=== PATIENT | female | born 1955 | race Caucasian/White ===

== ENCOUNTER 2024-02-24 07:27 | Inpatient (IN) | payer MEDICARE, SELFPAY ==
[2024-02-17 18:09] VITALS: BP 164/94; BMI 23.0
[2024-02-17 19:40] VITALS: BP 167/97
[2024-02-17] MEDS: DILAUDID 1 MG IV ×2 (19:48→20:53)
[2024-02-17 20:01] LABS: % Basophils 0.3 % (0-2); % Eosinophils 1.8 % (0-6); % Immature Granulocytes 0.3 % (0-0.5); % Lymphocytes 10.1 % (20.5-51.1); % Monocytes 13.5 % (1.7-9.3); Absolute Eosinophils 0.1 10^3/uL (0-0.7); Absolute Lymphocytes 0.3 10^3/uL (1.2-3.4); Absolute Monocytes 0.4 10^3/uL (0.1-0.6); Absolute Neutrophils 2.4 10^3/uL (1.4-6.5); Hematocrit 29.5 % (37.0-47.0); Hemoglobin 10.1 g/dL (12.0-16.0); Mean Corp Hgb Conc. 34.2 g/dL (33.0-37.0); Mean Corpuscular Hgb 32.7 pg (27.0-31.0); Mean Corpuscular Volume 95.5 fL (81.0-99.0); Mean Platelet Volume 12.3 fL (7.4-10.4); Nucleated Red Blood Cells % 0 %; Platelet Count 83 10^3/uL (130-400); Red Blood Cell Count 3.09 10^6/uL (4.20-5.40); Red Cell Dist. Width 15.2 % (11.5-14.5); White Blood Cell Count 3.3 10^3/uL (4.8-10.8)
--- NOTE | 2024-02-17 20:15 | ED.GENMED ---
History of Present Illness
<Nettie Velásquez PA-C - Last Filed: 02/18/24 03:37>
General
Chief Complaint: Back Pain
Source: patient and family
Exam Limitations: none
Time Seen by Provider: 02/17/24 19:12
Travel History
Have you had any contact with someone who has COVID-19?: No
Do you have any symptoms of coronavirus? Fever > 100 degrees, chills, cough, shortness of breath, sore throat, loss of taste or smell, muscle aches, or headache?: No
History of Present Illness
History of Present Illness:
69y/o F with h/o mult myeloma, frequent UTI, htn, hld
subacute compress fx of t8-t9 on chronic pain management
due for kyphoplasty next week
here for acute exac of chronic mid to low back pain unchanged frmo baseline but also with associated generalized fatigue and nauea
pt had a fall 6 weeks ago and went to [facility] [place], was diagnosed with compression fx
was sent to skilled rehab for 2 weeks [place]
then from there 1 week ago went to [facility]
she believes she has not been given meds properly as written: dilaudid 4 mg q6, oxy 10 mg q6 prn
pt says she doubts she has had that many doses and her pain is not controlled
her sister was with her today and saw her really uncomortable and pt seemed more weak and gneerally not well than usual
she has not had any new falls, no focal weakness, no incontinence, no fever, chils nausea, vomiting.
Past History
<Nettie Velásquez PA-C - Last Filed: 02/18/24 03:37>
Past History
ED Past Medical History: HTN, Hypercholesterolemia and Other (multiple myeloma 2012 stem cell txp 2016)
Review of Systems
<Nettie Velásquez PA-C - Last Filed: 02/18/24 03:37>
Review of Systems
Allergies reviewed?: Yes
All Other Systems: Not applicable
Phy Exam
<Nettie Velásquez PA-C - Last Filed: 02/18/24 03:37>
Physical Exam
Physical Exam:
GENERAL: Alert , in no apparent distress, comfortable at rest
HEAD: NCAT
NECK: no midline tenderness, active ROM intac
CARDIAC: Regular rate and rhythm, no edema
LUNGS: Clear breath sounds bilaterally, no acute respiratory distress, no wheezes/rales/rhonchi
ABDOMEN: Soft, without focal tenderness, no r/g, no cvat, normal bowel sounds, nondistended
NEUROLOGICAL: Alert and oriented, no focal neuro deficits, CN intact, 5/5 strength, sensation intact, unable to get her up to mabultate
SKIN: Warm and dry,
MUSCULOSKELETAL: No edema, well perfused.
Back: No midline tenderness, mod kyphosis; no bruising
no weakness in the legs
pain with moement of her back, takes a long time to move in the stretcher
PSYCH: Normal and appropriate interaction.
Course
<Nettie Velásquez PA-C - Last Filed: 02/18/24 03:37>
Orders/Labs/Results
Orders:
Orders
02/17/24 19:30
HYDROmorphone [Dilaudid] 1 mg IV NOW STA
CR Thoracic Spine 3 Views Urgent
Reason For Exam: mid to low thoracic pain, h/o compression fx
Lumbar Spine Complete, 4 View [CR Lumbar Spine Comp Min 4 Vw*] Urgent
Comment:
Reason For Exam: low back pain, h/o comptression fx
02/17/24 19:48
Complete Blood Count/With Diff Urgent
Comprehensive Metabolic Panel Urgent
Lipase Urgent
02/17/24 20:50
HYDROmorphone [Dilaudid] 1 mg IV NOW STA
02/17/24 21:46
Urinalysis Reflex To Culture Urgent
Date Specimen was Collected: 02/17/24
Time Specimen was Collected: 21:44
Urine Microscopic Reflex Cult Urgent
Urine Culture Urgent
CAROL Source: U
Specimen Description:
Date Specimen was Collected: 02/17/24
Time Specimen was Collected: 21:44
02/17/24 23:13
Admit/Transfer Patient As Directed
Co-Sign Provider:
Level of Care: Observation services
Assign to:: Medical/Surgical
Physician / Group: Mary
Diagnosis: Uncontrolled Pain
02/17/24 23:16
Code Status As Directed
Resuscitation Status: Do not resuscitate
Reached after discussion with pt or family/Healthcare POA: Yes
02/17/24 23:18
DNR Bracelet Application ONCE
02/17/24 23:31
HYDROmorphone [Dilaudid] 0.5 mg IV NOW STA
Oxycodone Controlled Release [Oxycontin (Controlled Release)] 10 mg PO NOW STA
02/18/24 00:37
Acetaminophen [Tylenol] 650 mg PO Q4HPRN PRN
HYDROmorphone [Dilaudid] 0.5 mg IV Q3HPRN PRN
Oxycodone [Roxicodone] 10 mg PO Q6H PRN
02/18/24 00:37
Activity As Directed
Activity Level: Out of Bed-Early Mobility
With Assistance
I&O [Intake/ Output] As Directed
Frequency: q12h
Pneumatic Compression Sleeves As Directed
Type: Knee high
Vital Signs As Directed
Frequency: Per unit guidelines
Weight As Directed
Frequency: Daily
Ot Eval And Treat Routine
Pt Eval And Treat Routine
Activity Level: Out of Bed-Early Mobility
With Assistance
DX Deep Vein Thrombosis Video Routine
02/18/24 Breakfast
Regular
At Your Request: Full Participation
Basic Metabolic Panel IN AM
Complete Blood Count/No Diff IN AM
02/18/24 08:00
Acyclovir [Zovirax] 400 mg PO DAILY
Duloxetine Delayed Release [Cymbalta Delayed Release] 30 mg PO DAILY
Lisinopril [Zestril] 40 mg PO DAILY
Polyethylene Glycol Powder [Miralax] 17 grams PO DAILY
Pyridoxine [Vitamin B-6] 100 mg PO DAILY
02/18/24 22:00
Atorvastatin [Lipitor] 10 mg PO HS
Abnormal Lab Results
02/17/24 02/17/24
19:48 21:46
WBC 3.3 L 10^3/uL
(4.8-10.8)
RBC 3.09 L 10^6/uL
(4.20-5.40)
Hgb 10.1 L g/dL
(12.0-16.0)
Hct 29.5 L %
(37.0-47.0)
MCH 32.7 H pg
(27.0-31.0)
RDW 15.2 H %
(11.5-14.5)
Plt Count 83 L 10^3/uL
(130-400)
MPV 12.3 H fL
(7.4-10.4)
Absolute Lymphs (auto) 0.3 L 10^3/uL
(1.2-3.4)
Lymphocytes % 10.1 L %
(20.5-51.1)
Monocytes % 13.5 H %
(1.7-9.3)
Calcium 11.1 H mg/dl
(8.4-10.2)
Alkaline Phosphatase 131 H U/L
(38-126)
Urine Ketones Trace A
(Negative)
Leukocyte Esterase Rfl Trace A
(Negative)
Urine Bacteria (Reflex) Moderate A
(Negative)
02/17/24 19:48
02/17/24 19:48
Vital Signs
Initial and Last Documented VS:
Initial Vital Signs
Temp Pulse Resp BP Pulse Ox
98.5 F 87 16 164/94 95
02/17/24 18:09 02/17/24 18:09 02/17/24 18:09 02/17/24 18:09 02/17/24 18:09
Last Documented Vital Signs
Temp Pulse Resp BP Pulse Ox
97.5 F 82 16 143/64 97
02/18/24 00:35 02/18/24 01:14 02/18/24 01:14 02/18/24 02:36 02/18/24 00:35
<Petra Pedraza MD - Last Filed: 02/17/24 22:00>
Orders/Labs/Results
Orders:
Orders
02/17/24 19:30
HYDROmorphone [Dilaudid] 1 mg IV NOW STA
CR Thoracic Spine 3 Views Urgent
Reason For Exam: mid to low thoracic pain, h/o compression fx
Lumbar Spine Complete, 4 View [CR Lumbar Spine Comp Min 4 Vw*] Urgent
Comment:
Reason For Exam: low back pain, h/o comptression fx
02/17/24 19:48
Complete Blood Count/With Diff Urgent
Comprehensive Metabolic Panel Urgent
Lipase Urgent
02/17/24 20:50
HYDROmorphone [Dilaudid] 1 mg IV NOW STA
02/17/24 21:46
Urinalysis Reflex To Culture Urgent
Date Specimen was Collected: 02/17/24
Time Specimen was Collected: 21:44
Urine Microscopic Reflex Cult Urgent
Urine Culture Urgent
CAROL Source: U
Specimen Description:
Date Specimen was Collected: 02/17/24
Time Specimen was Collected: 21:44
02/17/24 23:13
Admit/Transfer Patient As Directed
Co-Sign Provider:
Level of Care: Observation services
Assign to:: Medical/Surgical
Physician / Group: Mary
Diagnosis: Uncontrolled Pain
02/17/24 23:16
Code Status As Directed
Resuscitation Status: Do not resuscitate
Reached after discussion with pt or family/Healthcare POA: Yes
02/17/24 23:18
DNR Bracelet Application ONCE
02/17/24 23:31
HYDROmorphone [Dilaudid] 0.5 mg IV NOW STA
Oxycodone Controlled Release [Oxycontin (Controlled Release)] 10 mg PO NOW STA
02/18/24 00:37
Acetaminophen [Tylenol] 650 mg PO Q4HPRN PRN
HYDROmorphone [Dilaudid] 0.5 mg IV Q3HPRN PRN
Oxycodone [Roxicodone] 10 mg PO Q6H PRN
02/18/24 00:37
Activity As Directed
Activity Level: Out of Bed-Early Mobility
With Assistance
I&O [Intake/ Output] As Directed
Frequency: q12h
Pneumatic Compression Sleeves As Directed
Type: Knee high
Vital Signs As Directed
Frequency: Per unit guidelines
Weight As Directed
Frequency: Daily
Ot Eval And Treat Routine
Pt Eval And Treat Routine
Activity Level: Out of Bed-Early Mobility
With Assistance
DX Deep Vein Thrombosis Video Routine
02/18/24 Breakfast
Regular
At Your Request: Full Participation
Basic Metabolic Panel IN AM
Complete Blood Count/No Diff IN AM
02/18/24 08:00
Acyclovir [Zovirax] 400 mg PO DAILY
Duloxetine Delayed Release [Cymbalta Delayed Release] 30 mg PO DAILY
Lisinopril [Zestril] 40 mg PO DAILY
Polyethylene Glycol Powder [Miralax] 17 grams PO DAILY
Pyridoxine [Vitamin B-6] 100 mg PO DAILY
02/18/24 22:00
Atorvastatin [Lipitor] 10 mg PO HS
Abnormal Lab Results
02/17/24 02/17/24
19:48 21:46
WBC 3.3 L 10^3/uL
(4.8-10.8)
RBC 3.09 L 10^6/uL
(4.20-5.40)
Hgb 10.1 L g/dL
(12.0-16.0)
Hct 29.5 L %
(37.0-47.0)
MCH 32.7 H pg
(27.0-31.0)
RDW 15.2 H %
(11.5-14.5)
Plt Count 83 L 10^3/uL
(130-400)
MPV 12.3 H fL
(7.4-10.4)
Absolute Lymphs (auto) 0.3 L 10^3/uL
(1.2-3.4)
Lymphocytes % 10.1 L %
(20.5-51.1)
Monocytes % 13.5 H %
(1.7-9.3)
Calcium 11.1 H mg/dl
(8.4-10.2)
Alkaline Phosphatase 131 H U/L
(38-126)
Urine Ketones Trace A
(Negative)
Leukocyte Esterase Rfl Trace A
(Negative)
Urine Bacteria (Reflex) Moderate A
(Negative)
02/17/24 19:48
02/17/24 19:48
Vital Signs
Initial and Last Documented VS:
Initial Vital Signs
Temp Pulse Resp BP Pulse Ox
98.5 F 87 16 164/94 95
02/17/24 18:09 02/17/24 18:09 02/17/24 18:09 02/17/24 18:09 02/17/24 18:09
Last Documented Vital Signs
Temp Pulse Resp BP Pulse Ox
97.5 F 82 16 143/64 97
02/18/24 00:35 02/18/24 01:14 02/18/24 01:14 02/18/24 02:36 02/18/24 00:35
<Nettie Velásquez PA-C - Last Filed: 02/18/24 03:37>
MDM/Problems Addressed
Differential Diagnosis Includes:
chronic pain, compression fx, deconditioning,
MDM/Problems Addressed:
69 y/o F with mult myeloma, chronic bakc pain on opiates
from [facility]
had fall 6 weeks ago and had xrays at [facility] [place], comp fx of t9/t10 and t11-12 and L2 noted on her paperwork, she was unsure what levels were new?
but she has had ongoing pain, went to rehab after [facility] then [facility]; sounds as if gil isn't dosing her meds as she was getting them before, dilaudid 4 mg q6, oxy 10 q6; becuase they are written as needed; she looks comfortable at rest
but really has hard time moving; i think she just needs pain control and pt/ot; i gave her 2 doses dilaudid
xrays today indep reviewed showing 'new' compression fx at L2, t11
but these are documente don her paperwork
probably subacute
offered d/c back to [facility] if pt felt she was pain controlled but she felt too unomfortable with any movement; pt admitted for pain control -
<Nettie Velásquez PA-C - Last Filed: 02/18/24 03:37>
*Critical Care Note
Total Time (30-74mins, 75-104mins- exclusive of procedures): Not Applicable
ED Attending Note
<Nettie Velásquez PA-C - Last Filed: 02/18/24 03:37>
-
Portions of this chart may have been created with voice recognition software.� Occasional wrong word or��sound alike� substitutions may have occurred due to the inherent limitations of voice recognition software.
<Petra Pedraza MD - Last Filed: 02/17/24 22:00>
ED Attending Note
Patient seen and examined by attending physician: Yes
I performed the substantive portion of visit, reviewed & personally made and approve the management plan that is documented in note by myself or ALIRIO.: Yes
ED Attending Note:
Patient presents with acute on chronic low back pain. She denies any radiation of pain. Patient has good strength and sensation in bilateral lower extremities without saddle anesthesia. After getting 2 rounds of IV pain medication, patient is
still having intractable low back pain with possible acute thoracic and lumbar compression fractures
Discharge Plan
Departure
Patient Disposition: Admit
Date of Disposition: 02/17/24
Time of Disposition: 22:35
Admit to: Med/Surg
Presentation/result/management discussed w/ accepting MD/DO: Hospitalist
Patient with high blood pressure during this ER visit?: No
Condition: Fair
Covid-19: Not Applicable
Discharge Problem:
Compression fracture, Chronic back pain
Interventions
Interventions:
*Risk Screen - Suicide Last Done: 02/17/24 18:12
*General Assessment Last Done: 02/17/24 18:12
*Neglect/Abuse Screening Last Done: 02/17/24 18:12
ED- Fall Risk Assessment Last Done: 02/17/24 19:13
*Nursing Disposition Last Done: 02/18/24 00:17
ED-Musculoskeletal Assessment Last Done: 02/17/24 19:13
Discharge Date and Time
Discharge Date/Time: 02/18/24 00:17
[2024-02-17 20:22] LABS: ALT (SGPT) 18 U/L (0-35); AST (SGOT) 36 U/L (14-36); Alkaline Phosphatase 131 U/L (38-126); Blood Urea Nitrogen 15 mg/dl (7-17); Calcium 11.1 mg/dl (8.4-10.2); Carbon Dioxide 27 mmol/L (22-30); Chloride 102 mmol/L (98-107); Estimated Creatinine Clearance 61 ml/min; Glucose 86 mg/dl (70-99); Potassium 4.1 mmol/L (3.5-5.1); Sodium 135 mmol/L (135-145); Total Bilirubin 0.7 mg/dl (0.2-1.3); Total Protein 6.9 g/dl (6.3-8.2); eGFR > 60.00
[2024-02-17 20:23] LABS: Lipase 52 U/L (23-300)
[2024-02-17 20:24] VITALS: BP 158/76
[2024-02-17 20:50] VITALS: BP 185/91
[2024-02-17 21:53] LABS: Urine Albumin Trace (Neg - Trace); Urine Bilirubin Negative (Negative); Urine Character Clear (Clear); Urine Color Yellow; Urine Glucose Negative (Negative); Urine Ketone Trace (Negative); Urine Leukocyte Trace (Negative); Urine Nitrite Negative (Negative); Urine Occult Blood Negative (Negative); Urine Specific Gravity 1.025 (<1.030); Urine Urobilinogen Negative (Neg - 1+)
[2024-02-17 22:03] LABS: Urine Squamous Cell 16-20 /LPF (Few)
[2024-02-17 22:04] LABS: Urine Red Blood Cell 0-2 /HPF (0-2)
[2024-02-17 22:05] LABS: Urine Bacteria Moderate (Negative)
[2024-02-17 22:25] VITALS: BP 160/90
--- NOTE | 2024-02-17 23:24 | HPS.HSE ---
Family Physician
-
Family Physician: Roz Valdes MD
Chief Complaint
-
Uncontrolled Back Pain
History of Present Illness
Patient is a 69 y/o female with a past medical history of multiple myeloma (status post stem cell transplant), hypertension, hyperlipidemia, and compression fractures of T10, T12, L2, and L3 who presents for acute on chronic low back pain. She has a
history of chronic pain due to multiple myeloma and compression fractures. She sustained a fall 6 weeks ago which resulted in new compression fractures. She recently moved to a new facility and she notes her current pain regimen includes
medications ordered 'as needed' and she has had difficulty receiving those doses while staying at the facility. She admits to using patches in the past for pain but denies relief from these types of medications. She reports that she is scheduled for
a kyphoplasty on Wednesday.
Medical History
Past Medical History
Past Medical History: Reports Other
Additional Past Medical History:
Multiple Myeloma
Compression Fractures
Chronic Pain with Opioid Dependence
Essential Hypertension
Hyperlipidemia
Past Surgical History: Reports Other
Additional Past Surgical History:
Rhinoplasty
Bladder Lift
Social History
Tobacco: Former Smoker (Quit at the age of 28)
Family History
Family History: Not pertinent
Allergies / Home Medications
Allergies reflects when Allergies were last updated in [employer].
Home Medications with original date entered in [employer]
Allergy/Medication List:
Allergies
Allergy/AdvReac Type Severity Reaction Status Date / Time
No Known Allergies Allergy Verified 02/17/24 18:13
Home Medications
atorvastatin 10 mg tablet 10 mg PO HS 09/25/23
lisinopril 40 mg tablet 40 mg PO DAILY 09/25/23
acyclovir 400 mg tablet 400 mg PO DAILY 02/17/24
duloxetine 30 mg capsule,delayed release 30 mg PO DAILY 02/17/24
folic acid 1 mg tablet 1 mg PO DAILY 02/17/24
hydromorphone 4 mg tablet (Dilaudid) 4 mg PO Q6H PRN severe pain 02/17/24
naloxone 4 mg/actuation nasal spray 4 mg intranasal Q3M PRN opiod overdose 02/17/24
oxycodone 10 mg tablet 10 mg PO Q6H 02/17/24
oxycodone 10 mg tablet 10 mg PO Q6H PRN moderate pain 02/17/24
pyridoxine (vitamin B6) 100 mg tablet 100 mg PO DAILY 02/17/24
Review of Systems
-
A 12 point ROS was completed and negative except as noted: Yes
Constitutional: Denies Fever or Chills
Respiratory: Denies Cough or Trouble Breathing
Cardiac: Denies Chest Pain or Palpitations
Abdomen/GI: Reports Constipated; Denies Abdominal Pain
Musculoskeletal: Reports See HPI
Physical Exam
Vital Signs
Vital Signs
Temp Pulse Resp BP Pulse Ox
98.5 F 82 18 160/90 94
02/17/24 18:09 02/17/24 22:25 02/17/24 22:25 02/17/24 22:25 02/17/24 22:25
Physical Exam
General: Comfortable and Conversant
HEENT: Anicteric and Moist mucous membranes
Respiratory: Clear and Non Labored Respirations
Cardiac: S1/S2 and Regular Rhythm
GI: Soft and Non Tender
Rectal: Deferred by Provider
Musculoskeletal: No Clubbing, No Cyanosis and No Edema
Skin: Warm and Dry; No Rash
Neuro: Awake, Alert, Oriented and Nonfocal/grossly intact
Psych: Calm
Laboratory Results
-
02/17/24 19:48
02/17/24 19:48
Laboratory Results
Total Bilirubin 0.7 mg/dl (0.2-1.3) 02/17/24 19:48
AST 36 U/L (14-36) 02/17/24 19:48
ALT 18 U/L (0-35) 02/17/24 19:48
Alkaline Phosphatase 131 U/L (38-126) H 02/17/24 19:48
Lipase 52 U/L (23-300) 02/17/24 19:48
Data Reviewed
-
Diagnostic Radiology: Report Reviewed by me
Lab Data: Labs Reviewed by me
Impression/Plan
-
Uncontrolled Pain secondary to Subacute Compression Fractures
-Transition to OxyContin 10mg TID
-Will use oxycodone 10mg q6hprn severe pain, and Dilaudid for breakthrough
Multiple Myeloma s/p stem cell transplant in 2016 - Treatment refractory per prior notes
-Follow-up with Hem[facility]Onc at [facility]
Essential Hypertension
-Continue lisinopril with hold parameters
Hyperlipidemia
-Continue atorvastatin
DVT proph: SCDs
Code Status: DNR
--- NOTE | 2024-02-17 23:53 | W.PN.UPDATE ---
Update Note
Progress Note Update
Attending addendum. Pt. Seen, examined and interviewed independently.
69 y/o woman with chronic low back pain sustained a fall 6 weeks ago which resulted in new compression fractures. She reports that she is scheduled for a kyphoplasty on Wednesday. She comes in for pain control.
-
Physical Exam
General: Comfortable and Conversant
Respiratory: Clear and Non Labored Respirations
Cardiac: S1/S2 and Regular Rhythm
GI: Soft and Non Tender
Musculoskeletal: No Clubbing, No Cyanosis and No Edema
Skin: Warm and Dry; No Rash
Impression/Plan
-
-
1. Uncontrolled Pain secondary to Subacute Compression Fractures
-Transition to OxyContin 10mg TID
-use oxycodone 10mg q6hprn severe pain, and Dilaudid for breakthrough
Please see PA note for further details on:
Multiple Myeloma s/p stem cell transplant in 2016
Essential Hypertension
Hyperlipidemia
[2024-02-17] MEDS: DILAUDID 0.5 MG IV (23:54)
[2024-02-17 23:55] VITALS: BP 172/90
[2024-02-18] VITALS (7 sets, daily range): BP systolic 141–180; BP diastolic 63–82; PULSE 86; O2SAT 97; BMI 22.2
[2024-02-18] MEDS: OXYCONTIN (CONTROLLED RELEASE) 10 MG PO ×3 (00:06→15:04)
[2024-02-18] MEDS: TYLENOL 650 MG PO (00:54)
--- NOTE | 2024-02-18 01:23 | PTCARENOTE ---
Received patient from ED. AAOx3. Bp- 180/82. asymptomatic. Medicated Patient with Tylenol for back pain. YANNICK Castro made aware of BP. No new orders at this time. Will recheck in couple hours as per advise. Bed alarm on for safety. POC
reviewed with patient
[2024-02-18] MEDS: ROXICODONE 10 MG PO ×3 (05:29→21:48)
[2024-02-18 05:35] LABS: Hematocrit 27.9 % (37.0-47.0); Hemoglobin 9.3 g/dL (12.0-16.0); Mean Corp Hgb Conc. 33.3 g/dL (33.0-37.0); Mean Corpuscular Hgb 32.9 pg (27.0-31.0); Mean Corpuscular Volume 98.6 fL (81.0-99.0); Mean Platelet Volume 11.7 fL (7.4-10.4); Platelet Count 77 10^3/uL (130-400); Red Blood Cell Count 2.83 10^6/uL (4.20-5.40); Red Cell Dist. Width 14.9 % (11.5-14.5); White Blood Cell Count 2.7 10^3/uL (4.8-10.8)
[2024-02-18 06:08] LABS: Blood Urea Nitrogen 15 mg/dl (7-17); Calcium 10.7 mg/dl (8.4-10.2); Carbon Dioxide 34 mmol/L (22-30); Chloride 101 mmol/L (98-107); Estimated Creatinine Clearance 53 ml/min; Glucose 89 mg/dl (70-99); Potassium 4.2 mmol/L (3.5-5.1); Sodium 137 mmol/L (135-145); eGFR > 60.00
[2024-02-18] MEDS: ZESTRIL 40 MG PO (07:40)
[2024-02-18] MEDS: MIRALAX 17 GRAMS PO ×2 (07:40→20:19)
[2024-02-18] MEDS: CYMBALTA DELAYED RELEASE 30 MG PO (07:40)
[2024-02-18] MEDS: VITAMIN B-6 100 MG PO (07:40)
[2024-02-18] MEDS: ZOVIRAX 400 MG PO (07:41)
[2024-02-18] MEDS: TYLENOL 1000 MG PO ×2 (09:18→15:03)
[2024-02-18] MEDS: SENOKOT 8.59999999999999964 MG PO ×2 (09:18→20:19)
[2024-02-18] MEDS: DILAUDID 0.5 MG IV ×3 (12:08→20:20)
--- NOTE | 2024-02-18 17:39 | W.PN.HOSP.TC ---
Today's Communication/Plan
-
Pain control
PT/OT
Placement
Assessment / Plan
Assessment / Plan
Physical Exam
General: Not in acute distress
HEENT: Normocephalic. Moist mucous membranes
Respiratory: Clear to Auscultation Bilaterally
Cardiac: S1/S2 and Regular Rhythm
GI: Soft and Non Tender. Positive bowel sounds.
Musculoskeletal: No Cyanosis and No Edema
Skin: Warm and Dry
Neuro: Awake, Alert, Oriented and Nonfocal/grossly intact
Psych: Calm
Assessment/Plan
69 y/o female with a past medical history of multiple myeloma (status post stem cell transplant), hypertension, hyperlipidemia, and compression fractures of T10, T12, L2, and L3 who presents for acute on chronic low back pain. She has a history of
chronic pain due to multiple myeloma and compression fractures. She sustained a fall 6 weeks ago which resulted in new compression fractures. She recently moved to a new facility and she noted her current pain regimen includes medications ordered
'as needed' and she has had difficulty receiving those doses while staying at the facility. She admits to using patches in the past for pain but denies relief from these types of medications. She reports that she is scheduled for a kyphoplasty on
02/22/24.
Uncontrolled Pain secondary to Subacute Compression Fractures
-Transitioned to OxyContin 10mg TID
-Will use oxycodone 10mg q6hprn severe pain, and Dilaudid for breakthrough
-Scheduled high-dose Tylenol
-Lidocaine patch
-PT/OT
-Placement
Multiple Myeloma s/p stem cell transplant in 2016 - Treatment refractory per prior notes
Pancytopenia
-Follow-up with Hem/Onc at [facility]
-Monitor CBC
Hypercalcemia
-Could be due to Multiple Myeloma
-Could also be due to recent inactivity
-Monitor BMP/calcium
Essential Hypertension
-Continue lisinopril with hold parameters
Hyperlipidemia
-Continue atorvastatin
DVT proph: Lovenox
Code Status: DNR
Anticipated Discharge: > 48 hours
Subjective/Interval History
-
Date of Service: February 18, 2024
Patient was seen and examined. She reported that she is still having back pain. She denied any saddle anesthesia or any new neurological symptoms.
Objective Data
-
Labs:
Laboratory Results
02/18/24
05:02
WBC 2.7 L
Hgb 9.3 L
Hct 27.9 L
Plt Count 77 L
Sodium 137
Potassium 4.2
Chloride 101
Carbon Dioxide 34 H
BUN 15
Creatinine 0.8
Glucose 89
Calcium 10.7 H
Vital Signs:
Vital Signs
Temp Pulse Resp BP Pulse Ox
97.8 F 78 18 141/63 96
02/18/24 15:46 02/18/24 15:46 02/18/24 15:46 02/18/24 15:46 02/18/24 15:46
I&O
02/17/24 02/18/24 02/19/24
06:59 06:59 06:59
Intake Total 400 / 400
Output Total 200 / 200
Balance 400 / 400 -200 / -200
--- NOTE | 2024-02-18 18:10 | CM ---
met with patient at bedside.patient lives at [facility] in [place].she has no steps to enter.her bed and bath is on the first level,she amb with a rw.she is independent with her adl.patient is adm with chronic back pain..she has hx of thoracic
compression fractures.she states she has never had a vn but has been to [facility] in past.patient was seen by therapy and can return to [facility] when stable for dc.pPlan: discharge to [facility] when stable.facility does
not provide transport.
[2024-02-18] MEDS: LOVENOX SC (20:18)
[2024-02-18] MEDS: LIPITOR 10 MG PO (20:19)
[2024-02-19] MEDS: OXYCONTIN (CONTROLLED RELEASE) 10 MG PO ×4 (00:07→23:49)
[2024-02-19] MEDS: TYLENOL 1000 MG PO ×4 (00:07→23:49)
[2024-02-19] MEDS: ROXICODONE 10 MG PO ×3 (05:08→17:37)
[2024-02-19 07:00] VITALS: BP 132/61
[2024-02-19] MEDS: VITAMIN B-6 100 MG PO (09:19)
[2024-02-19] MEDS: ZOVIRAX 400 MG PO (09:20)
[2024-02-19] MEDS: CYMBALTA DELAYED RELEASE 30 MG PO (09:20)
[2024-02-19] MEDS: ZESTRIL 40 MG PO (09:20)
[2024-02-19] MEDS: MIRALAX 17 GRAMS PO ×2 (09:21→20:11)
[2024-02-19] MEDS: SENOKOT 8.59999999999999964 MG PO ×2 (09:21→20:24)
[2024-02-19 15:00] VITALS: BP 98/74
[2024-02-19] MEDS: LOVENOX SC (16:52)
[2024-02-19 18:02] VITALS: BP 163/73
--- NOTE | 2024-02-19 18:47 | PTCARENOTE ---
patient transferred to [facility]. Patient is aaox3 and comfortable with call cary in reach.
[2024-02-19] MEDS: DILAUDID 0.5 MG IV (20:11)
--- NOTE | 2024-02-19 20:32 | W.PN.HOSP.TC ---
Today's Communication/Plan
-
Placement
Kyphoplasty outpatient on 02/22/24
Assessment / Plan
Assessment / Plan
Physical Exam
General: Not in acute distress
HEENT: Normocephalic. Moist mucous membranes
Respiratory: Clear to Auscultation Bilaterally
Cardiac: S1/S2 and Regular Rhythm
GI: Soft and Non Tender. Positive bowel sounds.
Musculoskeletal: No Cyanosis and No Edema
Skin: Warm and Dry
Neuro: Awake, Alert, Oriented and Nonfocal/grossly intact
Psych: Calm
Assessment/Plan
69 y/o female with a past medical history of multiple myeloma (status post stem cell transplant), hypertension, hyperlipidemia, and compression fractures of T10, T12, L2, and L3 who presents for acute on chronic low back pain. She has a history of
chronic pain due to multiple myeloma and compression fractures. She sustained a fall 6 weeks ago which resulted in new compression fractures. She recently moved to a new facility and she noted her current pain regimen includes medications ordered
'as needed' and she has had difficulty receiving those doses while staying at the facility. She admits to using patches in the past for pain but denies relief from these types of medications. She reports that she is scheduled for a kyphoplasty on
02/22/24.
Uncontrolled Pain secondary to Subacute Compression Fractures
-Continue OxyContin 10mg Q8H
-Continue oxycodone 10mg q6hprn severe pain, and Dilaudid for breakthrough
-Scheduled high-dose Tylenol
-Lidocaine patch
-PT/OT
-Placement
-Patient is scheduled for outpatient kyphoplasty on Wednesday02/22/24
Multiple Myeloma s/p stem cell transplant in 2016 - Treatment refractory per prior notes
Pancytopenia
-Follow-up with Hem/Onc at [facility]
-Monitor CBC
Hypercalcemia
-Could be due to Multiple Myeloma
-Could also be due to recent inactivity
-Monitor BMP/calcium
Essential Hypertension
-Continue lisinopril with hold parameters
Hyperlipidemia
-Continue atorvastatin
DVT proph: Lovenox
Code Status: DNR
I spoke with both patient and patient's sister, inside patient's room, on February 19, 2024. All questions and concerns were answered to satisfaction.
Anticipated Discharge: 24 - 48 hours
Subjective/Interval History
-
Date of Service: February 19, 2024
Patient was seen and examined. She reported pain is better. She has been having a bowel movement this morning.
Objective Data
-
Vital Signs:
Vital Signs
Temp Pulse Resp BP Pulse Ox
98.4 F 85 16 163/73 94
02/19/24 18:02 02/19/24 18:02 02/19/24 18:02 02/19/24 18:02 02/19/24 18:02
I&O
02/18/24 02/19/24 02/20/24
06:59 06:59 06:59
Intake Total 400 / 400 1860 / 1860 1110 / 1110
Output Total 200 / 200 800 / 800
Balance 400 / 400 1660 / 1660 310 / 310
[2024-02-19] MEDS: LIPITOR 10 MG PO (22:44)
[2024-02-19 23:44] VITALS: BP 135/68
[2024-02-20] MEDS: DILAUDID 0.5 MG IV ×3 (06:16→20:12)
[2024-02-20 07:53] VITALS: BP 160/83
[2024-02-20 08:20] LABS: Hematocrit 31.3 % (37.0-47.0); Hemoglobin 10.5 g/dL (12.0-16.0); Mean Corp Hgb Conc. 33.5 g/dL (33.0-37.0); Mean Corpuscular Hgb 32.7 pg (27.0-31.0); Mean Corpuscular Volume 97.5 fL (81.0-99.0); Mean Platelet Volume 12.3 fL (7.4-10.4); Platelet Count 84 10^3/uL (130-400); Red Blood Cell Count 3.21 10^6/uL (4.20-5.40); Red Cell Dist. Width 14.9 % (11.5-14.5); White Blood Cell Count 3.2 10^3/uL (4.8-10.8)
[2024-02-20] MEDS: ZESTRIL 40 MG PO (08:33)
[2024-02-20] MEDS: ZOVIRAX 400 MG PO (08:34)
[2024-02-20] MEDS: VITAMIN B-6 100 MG PO (08:34)
[2024-02-20] MEDS: MIRALAX 17 GRAMS PO (08:34)
[2024-02-20] MEDS: TYLENOL 1000 MG PO ×2 (08:34→15:28)
[2024-02-20] MEDS: CYMBALTA DELAYED RELEASE 30 MG PO (08:34)
[2024-02-20] MEDS: OXYCONTIN (CONTROLLED RELEASE) 10 MG PO ×2 (08:34→15:27)
[2024-02-20] MEDS: SENOKOT 8.59999999999999964 MG PO ×2 (08:35→20:13)
[2024-02-20 09:07] LABS: Albumin 3.8 g/dl (3.5-5.0); Blood Urea Nitrogen 15 mg/dl (7-17); Calcium 10.9 mg/dl (8.4-10.2); Carbon Dioxide 29 mmol/L (22-30); Chloride 101 mmol/L (98-107); Estimated Creatinine Clearance 71 ml/min; Glucose 88 mg/dl (70-99); Potassium 4.4 mmol/L (3.5-5.1); Sodium 137 mmol/L (135-145); eGFR > 60.00
--- NOTE | 2024-02-20 10:41 | CM ---
Addendum entered by Aury Calloway 02/20/24 16:22:
Attending stated that he will order IR consult via [place] Text
Met with patient and explained plan that sister agreed to her having procedure done at [facility]
Addendum entered by Aury Calloway 02/20/24 11:17:
Spoke with sister via phone; explained that if she agrees with plan, Attending would order Consult and have Kyphoplasty procedure performed here at the hospital instead of outpatient. Sister agrees with the plan.
Original Note:
Met with patient at bedside; requested that I call her sister, Yahaira
Spoke with sister, Yahaira, via phone. Sister explained that she and the patient are not satisfied with the support given at current [facility]isted Living facility ([facility]) where patient lives. To move sister to another [facility], sister would have to visit other
ALFs and submit financial applications.
Patient is scheduled for outpatient procedure on Wednesday. Sister asked if sister can remain in the hospital for pain management and be scheduled for Kyphoplasty here at .
Attending notified; requested that is call me when he has time to discuss
[2024-02-20 14:40] VITALS: BP 139/60; PULSE 91; O2SAT 95
[2024-02-20 15:24] VITALS: BP 139/60
[2024-02-20] MEDS: LOVENOX SC (17:09)
--- NOTE | 2024-02-20 17:54 | W.PN.HOSP.TC ---
Today's Communication/Plan
-
Patient and her sister requested to have kyphoplasty here prior to discharge
IR consulted
Assessment / Plan
Assessment / Plan
Physical Exam
General: Not in acute distress
HEENT: Normocephalic. Moist mucous membranes
Respiratory: Clear to Auscultation Bilaterally
Cardiac: S1/S2 and Regular Rhythm
GI: Soft and Non Tender. Positive bowel sounds.
Musculoskeletal: No Cyanosis and No Edema
Skin: Warm and Dry
Neuro: Awake, Alert, Oriented and Nonfocal/grossly intact
Psych: Calm
Assessment/Plan
69 y/o female with a past medical history of multiple myeloma (status post stem cell transplant), hypertension, hyperlipidemia, and compression fractures of T10, T12, L2, and L3 who presents for acute on chronic low back pain. She has a history of
chronic pain due to multiple myeloma and compression fractures. She sustained a fall 6 weeks ago which resulted in new compression fractures. She recently moved to a new facility and she noted her current pain regimen includes medications ordered
'as needed' and she has had difficulty receiving those doses while staying at the facility. She admits to using patches in the past for pain but denies relief from these types of medications. She reports that she is scheduled for a kyphoplasty on
02/22/24.
Uncontrolled Pain secondary to Subacute Compression Fractures
-Continue OxyContin 10mg Q8H
-Continue oxycodone 10mg q6hprn severe pain, and Dilaudid for breakthrough
-Scheduled high-dose Tylenol
-Lidocaine patch
-PT/OT
-Placement
-Patient was original scheduled for outpatient kyphoplasty on Wednesday02/22/24 - BUT NOW THE PATIENT AND HER SISTER REQUESTED TO HAVE IT HERE BEFORE DISCHARGE
-IR consulted for kyphoplasty
-Monitor for bowel movements, confusion, and respiratory issues while on Oxycodone
Multiple Myeloma s/p stem cell transplant in 2016 - Treatment refractory per prior notes
Pancytopenia
-Follow-up with Hem/Onc at [facility]
-Monitor CBC
-Consider Hem/Onc consult
Hypercalcemia
-Could be due to Multiple Myeloma
-Could also be due to recent inactivity
-Monitor BMP/calcium
Essential Hypertension
-Continue lisinopril with hold parameters
Hyperlipidemia
-Continue atorvastatin
DVT proph: Lovenox
Code Status: DNR
I spoke with both patient and patient's sister, inside patient's room, on February 19, 2024. All questions and concerns were answered to satisfaction.
Anticipated Discharge: > 48 hours
Subjective/Interval History
-
Date of Service: February 20, 2024
Patient was seen and examined. She had a normal bowel movement this morning, as per patient. Pain is controlled as per patient.
Objective Data
-
Labs:
Laboratory Results
02/20/24
08:07
WBC 3.2 L
Hgb 10.5 L
Hct 31.3 L
Plt Count 84 L
Sodium 137
Potassium 4.4
Chloride 101
Carbon Dioxide 29
BUN 15
Creatinine 0.6
Glucose 88
Calcium 10.9 H
Vital Signs:
Vital Signs
Temp Pulse Resp BP Pulse Ox
98.3 F 91 18 139/60 95
02/20/24 15:24 02/20/24 15:24 02/20/24 15:24 02/20/24 15:24 02/20/24 15:24
I&O
02/19/24 02/20/24 02/21/24
06:59 06:59 06:59
Intake Total 1860 / 1860 1470 / 1470 480 / 480
Output Total 200 / 200 800 / 800
Balance 1660 / 1660 670 / 670 480 / 480
[2024-02-20] MEDS: LIPITOR 10 MG PO (20:13)
[2024-02-20] MEDS: MIRALAX PO (20:14)
[2024-02-20 23:23] VITALS: BP 140/69
[2024-02-21] MEDS: TYLENOL 1000 MG PO ×3 (00:26→16:54)
[2024-02-21] MEDS: OXYCONTIN (CONTROLLED RELEASE) 10 MG PO ×3 (00:26→16:54)
[2024-02-21 07:00] VITALS: BP 155/77
[2024-02-21] MEDS: VITAMIN B-6 100 MG PO (07:47)
[2024-02-21] MEDS: CYMBALTA DELAYED RELEASE 30 MG PO (07:47)
[2024-02-21] MEDS: ZOVIRAX 400 MG PO (07:48)
[2024-02-21] MEDS: ZESTRIL 40 MG PO (07:48)
[2024-02-21] MEDS: SENOKOT PO (07:48)
[2024-02-21] MEDS: MIRALAX PO (07:48)
--- NOTE | 2024-02-21 09:00 | W.PN.HOSP.TC ---
Today's Communication/Plan
-
see A/P
Assessment / Plan
Assessment / Plan
69 y/o female with a past medical history of multiple myeloma (status post stem cell transplant), hypertension, hyperlipidemia, and compression fractures of T10, T12, L2, and L3 who presented for acute on chronic low back pain. She has a history of
chronic pain due to multiple myeloma and compression fractures. 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 She recently moved to a new facility and she noted her current pain regimen includes medications ordered
'as needed' and she has had difficulty receiving those while at the facility. She admitted to using patches in the past for pain but denies relief from these types of medications. She reports that she is scheduled for a kyphoplasty on 02/22/24.
A/P:
# Uncontrolled Pain secondary to Subacute Compression Fractures
Continue OxyContin 10mg Q8H
Continue oxycodone 10mg q6h prn severe pain, and Dilaudid for breakthrough
Scheduled high-dose Tylenol
Lidocaine patch
PT/OT [facility] SN[facility]
Patient was original scheduled for outpatient kyphoplasty on Wednesday02/22/24 - BUT NOW THE PATIENT AND HER SISTER REQUESTED TO HAVE IT HERE BEFORE DISCHARGE
IR consulted for kyphoplasty
Monitor for bowel movements, confusion, and respiratory issues while on Opiate
# Multiple Myeloma s/p stem cell transplant in 2016 - Treatment refractory per prior notes
# Pancytopenia
Follow-up with Hem/Onc at [facility]
Monitor CBC
# Mild Hypercalcemia
Could be due to Multiple Myeloma
Could also be due to recent inactivity
Monitor BMP/calcium
# Essential Hypertension
Continue lisinopril with hold parameters
# Hyperlipidemia
Continue atorvastatin
DVT proph: Lovenox SQ
Code Status: DNR
updated sister on the phone
Anticipated Discharge: 24 - 48 hours
Subjective/Interval History
-
Date of Service: February 21, 2024
Objective Data
-
Vital Signs:
Vital Signs
Temp Pulse Resp BP Pulse Ox
36.6 C 85 16 155/77 94
02/21/24 07:00 02/21/24 07:00 02/21/24 07:00 02/21/24 07:00 02/21/24 07:00
I&O
02/20/24 02/21/24 02/22/24
06:59 06:59 06:59
Intake Total 1470 / 1470 720 / 720
Output Total 800 / 800
Balance 670 / 670 720 / 720
Review of Systems
-
Musculoskeletal: Reports Other (back pain)
Physical Exam
-
General: Well Developed, Well Nourished, No Apparent Distress and Comfortable
HEENT: Normocephalic and Atraumatic
Respiratory: Clear to Auscultation and Non Labored Respirations; Negative Accessory Resp Muscle Use
Cardiac: Regular Rhythm and S1/S2
GI: Soft
Neuro: Awake and Alert
Psych: Calm and Intact Judgement/Insight
Data Reviewed
-
Diagnostic Radiology: Report Reviewed by me
Labs: Labs Reviewed by me
--- NOTE | 2024-02-21 12:06 | CON.IR ---
Consultation
-
Date/Time Consultation Requested: 02/20/24 17:54
Date/Time Consultation Performed: 02/21/24 11:45
Requesting Provider: Dr Roni Regan
Performing Provider: Divya Lambert PA-C
Reason for Consultation: Back pain Compression fractures
Medical History
-
Chief Complaint: Back Pain
History of Present Illness:
69 y/o female with a PMHx of multiple myeloma, HTN, HLD, and compression fractures of T10, T12, L2, and L3 who was admitted for acute on chronic low back pain. She has a history of chronic pain due to multiple myeloma and known compression
fractures. She had a fall 6 weeks ago which resulted in new compression fractures. She admits to using patches in the past for pain but denies relief from these. She reports that she is scheduled for a kyphoplasty on Wednesday but is not sure where.
She denies radiation of pain. She has had no loss of bowel or bladder control. She denies weakness or paresthesias
Past Medical History
Past Medical History: Cancer (Multiple Myeloma), HTN and Hypercholesterolemia
Social History
Tobacco: Former Smoker
Family History
Family History: Reviewed & Not Pertinent
Allergies / Home Medications
Allergy/AdvReac Type Severity Reaction Status Date / Time
atenolol Allergy Unknown Unknown Verified 02/18/24 02:03
citalopram Allergy Unknown Verified 02/18/24 02:03
gabapentin Allergy Unknown Verified 02/18/24 02:03
losartan Allergy Unknown Verified 02/18/24 02:03
ondansetron Allergy Unknown Verified 02/18/24 02:03
orange Allergy Unknown Verified 02/18/24 02:16
ragweed pollen Allergy Unknown Verified 02/18/24 02:15
tomato Allergy Unknown Verified 02/18/24 02:16
�Medication �Instructions �Recorded �Confirmed �Type
atorvastatin 10 mg tablet 10 mg PO HS High Cholesterol 09/25/23 02/17/24 History
lisinopril 40 mg tablet 40 mg PO DAILY Blood Pressure 09/25/23 02/17/24 History
acyclovir 400 mg tablet 400 mg PO DAILY ANTI-VIRAL 02/17/24 02/17/24 History
duloxetine 30 mg capsule,delayed 30 mg PO DAILY Mental 02/17/24 02/17/24 History
release Health/Anxiety
folic acid 1 mg tablet 1 mg PO DAILY Supplement 02/17/24 02/17/24 History
hydromorphone 4 mg tablet 4 mg PO Q6H PRN severe pain 02/17/24 02/17/24 History
(Dilaudid)
naloxone 4 mg/actuation nasal spray 4 mg intranasal Q3M PRN opiod 02/17/24 02/17/24 History
overdose
oxycodone 10 mg tablet 10 mg PO Q6H PRN moderate pain 02/17/24 02/17/24 History
oxycodone 10 mg tablet 10 mg PO Q6H Pain 02/17/24 02/17/24 History
pyridoxine (vitamin B6) 100 mg 100 mg PO DAILY Supplement 02/17/24 02/17/24 History
tablet
Review of Systems
-
History Source: Patient
Constitutional: Reports No Symptoms
Respiratory: Reports No Symptoms
Cardiac: Reports No Symptoms
Abdomen/GI: Reports No Symptoms
Musculoskeletal: Reports Other (Back pain)
Skin: Reports No Symptoms
Neurological: Reports No Symptoms
Physical Exam
Vital Signs
Temp Pulse Resp BP Pulse Ox
97.8 F 85 16 155/77 94
02/21/24 07:00 02/21/24 07:00 02/21/24 07:00 02/21/24 07:00 02/21/24 07:00
Lab Results
02/20/24 08:07
02/20/24 08:07
Physical Exam
General: Well Developed, Well Nourished and No Apparent Distress
HEENT: Normocephalic
Respiratory: Clear
Cardiac: S1/S2 and Regular Rhythm
GI: Soft, Non Tender, Non Distended and Normal Bowel Sounds
Musculoskeletal: No Edema and Other (No bruising or deformity noted. Tender over the lower thoracic spine and upper lumbar spine on palpation. SLR elicits back pain but no radicular symptoms)
Skin: Warm and Dry
Neuro: Awake, Alert and No Motor Deficits
Psych: Calm
Pulses: Bilateral Dorsalis Pedis: +1 and Bilateral Posterior Tibial: +1
Assessment / Plan
-
This is a 69 yo female admitted for acute on chronic back pain. She has a h/o multiple myeloma with compression fractures of T10, T12, L2, and L3. She was scheduled for a kyphoplasty this Wednesday but does not recall where or what levels. She does
have mideline spinal tenderness on palpation. She will have her sister bring a copy of her MRI and it will be loaded into our [employer] system. Once we see the images we can determine is she would be a good candidate for the procedure and what
level(s) would be appropriate to treat.
[2024-02-21] MEDS: DILAUDID 0.5 MG IV ×2 (13:57→20:46)
[2024-02-21 14:37] VITALS: BP 144/76; PULSE 92; O2SAT 94
[2024-02-21] MEDS: LOVENOX SC (16:56)
[2024-02-21] MEDS: LIDOCAINE 4% PATCH 1 PATCH TOPICAL (20:46)
[2024-02-21] MEDS: FLUSH (NSS) 2 FLUSH IV (20:48)
[2024-02-21] MEDS: SENOKOT 8.59999999999999964 MG PO (20:52)
[2024-02-21] MEDS: MIRALAX 17 GRAMS PO (20:52)
[2024-02-21] MEDS: LIPITOR 10 MG PO (20:53)
[2024-02-21 23:19] VITALS: BP 133/74
[2024-02-22] MEDS: OXYCONTIN (CONTROLLED RELEASE) 10 MG PO ×4 (00:15→23:10)
[2024-02-22] MEDS: TYLENOL 1000 MG PO ×4 (00:16→23:00)
[2024-02-22 06:00] VITALS: BMI 21.5
[2024-02-22 06:56] LABS: Hematocrit 30.6 % (37.0-47.0); Hemoglobin 10.1 g/dL (12.0-16.0); Mean Corpuscular Hgb 32.6 pg (27.0-31.0); Mean Corpuscular Volume 98.7 fL (81.0-99.0); Platelet Count 88 10^3/uL (130-400); Red Cell Dist. Width 15.1 % (11.5-14.5)
[2024-02-22 07:44] LABS: Blood Urea Nitrogen 15 mg/dl (7-17); Calcium 11.2 mg/dl (8.4-10.2); Carbon Dioxide 31 mmol/L (22-30); Chloride 100 mmol/L (98-107); Estimated Creatinine Clearance 61 ml/min; Glucose 78 mg/dl (70-99); Magnesium 1.9 mg/dl (1.6-2.3); Potassium 3.9 mmol/L (3.5-5.1); Sodium 135 mmol/L (135-145); eGFR > 60.00
[2024-02-22 08:00] VITALS: BP 154/80
[2024-02-22] MEDS: SENOKOT 8.59999999999999964 MG PO ×2 (08:07→20:38)
[2024-02-22] MEDS: ZESTRIL 40 MG PO (08:07)
[2024-02-22] MEDS: CYMBALTA DELAYED RELEASE 30 MG PO (08:07)
[2024-02-22] MEDS: MIRALAX 17 GRAMS PO ×2 (08:08→20:38)
[2024-02-22] MEDS: LIDOCAINE 4% PATCH 1 PATCH TOPICAL (08:08)
[2024-02-22] MEDS: ZOVIRAX 400 MG PO (08:08)
[2024-02-22] MEDS: VITAMIN B-6 100 MG PO (08:08)
--- NOTE | 2024-02-22 09:36 | CM ---
Received a call from the patient's sister, Yahaira Cruz #[phone].
Attending notified via [place] Text; explained that I had several communications with sister over the weekend.
Sister is the primary contact and involved with patient's care and care decision; and the person to contact to facilitate the patient's care.
Sister requested that I ask the Attending to give her a call for a status update.
[place] Text acknowledged text
--- NOTE | 2024-02-22 09:45 | W.PN.HOSP.TC ---
Today's Communication/Plan
-
see A/P
Assessment / Plan
Assessment / Plan
69 y/o female with a past medical history of multiple myeloma (status post stem cell transplant), hypertension, hyperlipidemia, and compression fractures of T10, T12, L2, and L3 who presented for acute on chronic low back pain. She has a history of
chronic pain due to multiple myeloma and compression fractures. 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 She recently moved to a new facility and she noted her current pain regimen includes medications ordered
'as needed' and she has had difficulty receiving those while at the facility. She admitted to using patches in the past for pain but denies relief from these types of medications. She reports that she is scheduled for a kyphoplasty on 02/22/24.
A/P:
# Uncontrolled Pain secondary to Subacute Compression Fractures
Continue OxyContin 10mg Q8H
Continue oxycodone 10mg q6h prn severe pain, Dilaudid for breakthrough. Monitor for BM, confusion, and respiratory issues while on Opiate.
Cont high-dose ATC Tylenol, cont Lidocaine patch
PT/OT recc SNF
Patient was original scheduled for outpatient kyphoplasty on Wednesday02/22/24 - BUT NOW THE PATIENT AND HER SISTER REQUESTED TO HAVE IT HERE BEFORE DISCHARGE
MRI thoracic and lumbar spine noted increased compression fractures in the lower thoracic and lumbar spine including chronic compression of T10, superior endplate of T11, severe compression of T12, superior endplate of L2, severe compression of L3
and significant bone marrow edema and inferior endplate compression of L4.
IR consulted for kyphoplasty eval.
# Multiple Myeloma s/p stem cell transplant in 2016- Treatment refractory per prior notes
# Pancytopenia
Follow-up with Hem/Onc at [facility]
Monitor CBC
# Mild Hypercalcemia
Could be due to Multiple Myeloma
Could also be due to recent inactivity
Monitor BMP/calcium
# Essential Hypertension
Continue lisinopril with hold parameters
# Hyperlipidemia
Continue atorvastatin
DVT proph: Lovenox SQ
Code Status: DNR
updated sister on the phone
Anticipated Discharge: 24 - 48 hours
Subjective/Interval History
-
Date of Service: February 22, 2024
Objective Data
-
Labs:
Laboratory Results
02/22/24
06:31
WBC 3.0 L
Hgb 10.1 L
Hct 30.6 L
Plt Count 88 L
Sodium 135
Potassium 3.9
Chloride 100
Carbon Dioxide 31 H
BUN 15
Creatinine 0.7
Glucose 78
Calcium 11.2 H
Vital Signs:
Vital Signs
Temp Pulse Resp BP Pulse Ox
36.6 C 84 17 154/80 94
02/22/24 08:00 02/22/24 08:00 02/22/24 08:00 02/22/24 08:00 02/22/24 08:00
I&O
02/21/24 02/22/24 02/23/24
06:59 06:59 06:59
Intake Total 720 / 720 840 / 840
Balance 720 / 720 840 / 840
Review of Systems
-
Musculoskeletal: Reports Other (back pain)
Physical Exam
-
General: Well Developed, Well Nourished, No Apparent Distress and Comfortable
HEENT: Normocephalic and Atraumatic
Respiratory: Clear to Auscultation and Non Labored Respirations; Negative Accessory Resp Muscle Use
Cardiac: Regular Rhythm and S1/S2
GI: Soft
Neuro: Awake and Alert
Psych: Calm and Intact Judgement/Insight
Data Reviewed
-
Diagnostic Radiology: Report Reviewed by me
MRI: Report Reviewed by me, Discussed with Patient and Discussed with Family
Labs: Labs Reviewed by me
--- NOTE | 2024-02-22 13:59 | CM ---
Case management following for d/c planning
Pain management continuing, pt remains uncomfortable
IR consult for poss Kyphoplasty
PT recommending SNF - pt OBS status
Received call from Barbara at [facility] [phone]
Requesting update prior to d/c to re-evalute pts return
Case management will cont to follow for d/c needs
Plan - tbd pend IR procedure
[2024-02-22 15:33] VITALS: BP 154/80
[2024-02-22 15:50] VITALS: BP 154/80; PULSE 108
[2024-02-22] MEDS: LOVENOX SC (16:10)
[2024-02-22] MEDS: LIPITOR 10 MG PO (20:38)
[2024-02-22 23:10] VITALS: BP 144/68
[2024-02-23 06:00] VITALS: BMI 21.5
[2024-02-23 06:31] LABS: Hematocrit 31.8 % (37.0-47.0); Hemoglobin 10.6 g/dL (12.0-16.0); Mean Corp Hgb Conc. 33.3 g/dL (33.0-37.0); Mean Corpuscular Hgb 32.5 pg (27.0-31.0); Mean Corpuscular Volume 97.5 fL (81.0-99.0); Mean Platelet Volume 11.5 fL (7.4-10.4); Platelet Count 96 10^3/uL (130-400); Red Blood Cell Count 3.26 10^6/uL (4.20-5.40); Red Cell Dist. Width 15.1 % (11.5-14.5)
[2024-02-23 06:52] LABS: Blood Urea Nitrogen 18 mg/dl (7-17); Calcium 11.1 mg/dl (8.4-10.2); Carbon Dioxide 30 mmol/L (22-30); Chloride 100 mmol/L (98-107); Estimated Creatinine Clearance 61 ml/min; Glucose 87 mg/dl (70-99); Magnesium 1.9 mg/dl (1.6-2.3); Potassium 3.8 mmol/L (3.5-5.1); Sodium 135 mmol/L (135-145); eGFR > 60.00
[2024-02-23 07:00] VITALS: BP 121/59
[2024-02-23] MEDS: VITAMIN B-6 100 MG PO (08:27)
[2024-02-23] MEDS: TYLENOL 1000 MG PO ×3 (08:27→23:04)
[2024-02-23] MEDS: SENOKOT 8.59999999999999964 MG PO (08:28)
[2024-02-23] MEDS: CYMBALTA DELAYED RELEASE 30 MG PO (08:28)
[2024-02-23] MEDS: ZOVIRAX 400 MG PO (08:28)
[2024-02-23] MEDS: MIRALAX 17 GRAMS PO (08:28)
[2024-02-23] MEDS: LIDOCAINE 4% PATCH 1 PATCH TOPICAL (08:28)
[2024-02-23] MEDS: OXYCONTIN (CONTROLLED RELEASE) 10 MG PO ×3 (08:28→23:04)
[2024-02-23] MEDS: ZESTRIL 40 MG PO (08:29)
--- NOTE | 2024-02-23 09:10 | W.PN.HOSP.TC ---
Today's Communication/Plan
-
see A/P
Assessment / Plan
Assessment / Plan
69 y/o female with a past medical history of multiple myeloma (status post stem cell transplant), hypertension, hyperlipidemia, and compression fractures of T10, T12, L2, and L3 who presented for acute on chronic low back pain. She has a history of
chronic pain due to multiple myeloma and compression fractures. 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 She recently moved to a new facility and she noted her current pain regimen includes medications ordered
'as needed' and she has had difficulty receiving those while at the facility. She admitted to using patches in the past for pain but denies relief from these types of medications. She reports that she is scheduled for a kyphoplasty on 02/22/24.
A/P:
# Uncontrolled Pain secondary to Subacute Compression Fractures
Continue OxyContin 10mg Q8H
Continue oxycodone 10mg q6h prn severe pain, Dilaudid for breakthrough. Monitor for BM, confusion, and respiratory issues while on Opiate.
Cont high-dose ATC Tylenol, Lidocaine patch
PT/OT recc SNF
Patient was original scheduled for outpatient kyphoplasty on Wednesday02/22/24- BUT NOW THE PATIENT AND HER SISTER REQUESTED TO HAVE IT HERE BEFORE DISCHARGE
MRI thoracic and lumbar spine noted increased compression fractures in the lower thoracic and lumbar spine including chronic compression of T10, superior endplate of T11, severe compression of T12, superior endplate of L2, severe compression of L3
and significant bone marrow edema and inferior endplate compression of L4.
IR consulted for kyphoplasty eval, awaiting plan
# Multiple Myeloma s/p stem cell transplant in 2016- Treatment refractory per prior notes
# Pancytopenia
Follow-up with Hem/Onc at [facility]
Monitor CBC
# Mild Hypercalcemia
Could be due to Multiple Myeloma
Could also be due to recent inactivity
Monitor BMP/calcium
# Essential Hypertension
Continue lisinopril with hold parameters
# Hyperlipidemia
Continue atorvastatin
DVT proph: Lovenox SQ
Code Status: DNR
called sister, calls not answered
Anticipated Discharge: 24 - 48 hours
Subjective/Interval History
-
Date of Service: February 23, 2024
Objective Data
-
Labs:
Laboratory Results
02/23/24
06:03
WBC 4.0 L
Hgb 10.6 L
Hct 31.8 L
Plt Count 96 L
Sodium 135
Potassium 3.8
Chloride 100
Carbon Dioxide 30
BUN 18 H
Creatinine 0.7
Glucose 87
Calcium 11.1 H
Vital Signs:
Vital Signs
Temp Pulse Resp BP Pulse Ox
36.7 C 82 18 121/59 93
02/23/24 07:00 02/23/24 08:29 02/23/24 07:00 02/23/24 08:29 02/23/24 07:00
I&O
02/22/24 02/23/24 02/24/24
06:59 06:59 06:59
Intake Total 840 / 840 580 / 580
Balance 840 / 840 580 / 580
Review of Systems
-
Musculoskeletal: Reports Other (back pain)
Physical Exam
-
General: Well Developed, Well Nourished, No Apparent Distress and Comfortable
HEENT: Normocephalic and Atraumatic
Respiratory: Clear to Auscultation and Non Labored Respirations; Negative Accessory Resp Muscle Use
Cardiac: Regular Rhythm and S1/S2
GI: Soft
Neuro: Awake and Alert
Psych: Calm and Intact Judgement/Insight
Data Reviewed
-
Diagnostic Radiology: Report Reviewed by me
MRI: Report Reviewed by me, Discussed with Patient and Discussed with Family
Labs: Labs Reviewed by me
[2024-02-23 12:06] VITALS: BP 109/60
[2024-02-23 15:00] VITALS: BP 144/68
[2024-02-23 15:04] VITALS: BP 156/86; PULSE 100
--- NOTE | 2024-02-23 15:28 | CM ---
Case management following for d/c planning
Pt for IR procedure tomorrow
PT recommending SNF - pt is admitted under observation status
Discussed with pt - aware she is currently admitted as obs status - will not qualify for snf
Plan - tbd post IR intervention
[2024-02-23] MEDS: LOVENOX 40 MG SC (17:34)
[2024-02-23] MEDS: DILAUDID 0.5 MG IV (19:49)
[2024-02-23] MEDS: MIRALAX PO (19:51)
[2024-02-23] MEDS: SENOKOT PO (19:51)
[2024-02-23] MEDS: LIPITOR 10 MG PO (21:23)
[2024-02-23 23:35] VITALS: BP 128/55
[2024-02-24 06:00] VITALS: BMI 21.0
[2024-02-24 06:24] LABS: Hematocrit 28.6 % (37.0-47.0); Hemoglobin 9.6 g/dL (12.0-16.0); Mean Corp Hgb Conc. 33.6 g/dL (33.0-37.0); Mean Corpuscular Hgb 32.5 pg (27.0-31.0); Mean Corpuscular Volume 96.9 fL (81.0-99.0); Mean Platelet Volume 12.1 fL (7.4-10.4); Platelet Count 89 10^3/uL (130-400); Red Blood Cell Count 2.95 10^6/uL (4.20-5.40); Red Cell Dist. Width 14.9 % (11.5-14.5); White Blood Cell Count 3.3 10^3/uL (4.8-10.8)
[2024-02-24 06:32] LABS: PT 14.2 Sec (11.4-14.6)
[2024-02-24 06:50] LABS: Blood Urea Nitrogen 16 mg/dl (7-17); Calcium 11.2 mg/dl (8.4-10.2); Carbon Dioxide 29 mmol/L (22-30); Chloride 101 mmol/L (98-107); Estimated Creatinine Clearance 71 ml/min; Glucose 92 mg/dl (70-99); Magnesium 1.9 mg/dl (1.6-2.3); Potassium 3.9 mmol/L (3.5-5.1); Sodium 138 mmol/L (135-145); eGFR > 60.00
[2024-02-24 07:00] VITALS: BP 127/82
[2024-02-24] MEDS: LIDOCAINE 4% PATCH 1 PATCH TOPICAL (07:56)
[2024-02-24] MEDS: OXYCONTIN (CONTROLLED RELEASE) 10 MG PO ×3 (07:56→23:52)
[2024-02-24] MEDS: TYLENOL 1000 MG PO ×3 (07:56→23:52)
[2024-02-24] MEDS: VITAMIN B-6 100 MG PO (07:56)
[2024-02-24] MEDS: CYMBALTA DELAYED RELEASE 30 MG PO (07:57)
[2024-02-24] MEDS: SENOKOT 8.59999999999999964 MG PO ×2 (07:57→21:37)
[2024-02-24] MEDS: ZESTRIL 40 MG PO (07:57)
[2024-02-24] MEDS: ZOVIRAX 400 MG PO (07:57)
[2024-02-24] MEDS: MIRALAX PO (08:04)
[2024-02-24] MEDS: REFRESH EYE DROPS (PF) 1 DROPS OPHTH ×4 (09:21→21:37)
--- NOTE | 2024-02-24 09:31 | W.PN.HOSP.TC ---
Today's Communication/Plan
-
see A/P
Assessment / Plan
Assessment / Plan
69 y/o female with a past medical history of multiple myeloma (status post stem cell transplant), hypertension, hyperlipidemia, and compression fractures of T10, T12, L2, and L3 who presented for acute on chronic low back pain. She has a history of
chronic pain due to multiple myeloma and compression fractures. 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 She recently moved to a new facility and she noted her current pain regimen includes medications ordered
'as needed' and she has had difficulty receiving those while at the facility. She admitted to using patches in the past for pain but denies relief from these types of medications. She reports that she is scheduled for a kyphoplasty on 02/22/24.
A/P:
# Uncontrolled Pain secondary to Subacute Compression Fractures
Continue OxyContin 10mg Q8H
Continue oxycodone 10mg q6h prn severe pain, Dilaudid for breakthrough.
Cont high-dose ATC Tylenol, Lidocaine patch
Cont current bowel regimen, may need to increase if constipation occurs
Patient was original scheduled for outpatient kyphoplasty on Wednesday02/22/24- BUT NOW THE PATIENT AND HER SISTER REQUESTED TO HAVE IT HERE BEFORE DISCHARGE
MRI thoracic and lumbar spine noted increased compression fractures in the lower thoracic and lumbar spine including chronic compression of T10, superior endplate of T11, severe compression of T12, superior endplate of L2, severe compression of L3
and significant bone marrow edema and inferior endplate compression of L4.
IR consulted for kyphoplasty eval, plan procedure for today 02/23
PT/OT recc SNF
# R sided red eye likely viral conjunctivitis
start refresh eyedrop and monitor
# Multiple Myeloma s/p stem cell transplant in 2016- Treatment refractory per prior notes
# Pancytopenia
Follow-up with Hem/Onc at [facility]
Monitor CBC
# Mild Hypercalcemia
Could be due to Multiple Myeloma
Could also be due to recent inactivity
Monitor BMP/calcium
# Essential Hypertension
Continue lisinopril with hold parameters
# Hyperlipidemia
Continue atorvastatin
DVT proph: Lovenox SQ
Code Status: DNR
DW RN
Anticipated Discharge: 24 - 48 hours
Subjective/Interval History
-
Date of Service: February 24, 2024
Objective Data
-
Labs:
Laboratory Results
02/24/24
06:05
WBC 3.3 L
Hgb 9.6 L
Hct 28.6 L
Plt Count 89 L
PT 14.2
INR 1.10
Sodium 138
Potassium 3.9
Chloride 101
Carbon Dioxide 29
BUN 16
Creatinine 0.6
Glucose 92
Calcium 11.2 H
Vital Signs:
Vital Signs
Temp Pulse Resp BP Pulse Ox
36.7 C 83 16 148/72 100
02/24/24 07:00 02/24/24 07:57 02/24/24 07:00 02/24/24 07:57 02/24/24 07:00
I&O
02/23/24 02/24/24 02/25/24
06:59 06:59 06:59
Intake Total 580 / 580 480 / 480
Balance 580 / 580 480 / 480
Review of Systems
-
Musculoskeletal: Reports Other (back pain)
Physical Exam
-
General: Well Developed, Well Nourished, No Apparent Distress and Comfortable
HEENT: Normocephalic and Atraumatic
Respiratory: Clear to Auscultation and Non Labored Respirations; Negative Accessory Resp Muscle Use
Cardiac: Regular Rhythm and S1/S2
GI: Soft
Neuro: Awake and Alert
Psych: Calm and Intact Judgement/Insight
Data Reviewed
-
Diagnostic Radiology: Report Reviewed by me
MRI: Report Reviewed by me, Discussed with Patient and Discussed with Family
Labs: Labs Reviewed by me
[2024-02-24 12:41] VITALS: BMI 21.0
--- NOTE | 2024-02-24 13:03 | CM ---
Case management following for d/c planning
Pt status changed to inpatient
Discussed IMM with pt
PT recommending snf. Spoke with pt regarding choice - deferred to he sister yahaira
Spoke with pts sister Yahaira - [phone]. Discussed SNF options
Sister provided options - referrals sent in [facility]
Pt for IR procedure today
Will follow for d/c needs
Plan - anticipate d/c to SNF - pt will need 3 inpatient nights to qualify for SNF
[2024-02-24 13:05] VITALS: BP 172/78; BP_SYST 86
[2024-02-24 16:45] VITALS: BP 184/75; BP_SYST 66
[2024-02-24 17:28] VITALS: BP 172/85
[2024-02-24] MEDS: LOVENOX 40 MG SC (17:50)
--- NOTE | 2024-02-24 19:37 | PTCARENOTE ---
received pt back to floor from IR. Pt had vertebroplasty performed, 5 puncture sites to T11, L2, L3, covered by two white adhesive dressings, no drainage. Pt was flat for one hour with IR, so was cleared for ambulation as able upon return to 3. Pt
to be no higher than 30 degrees in bed tonight. VSS were obtained. Pt verbalized pain level of 8, resulting in BP elevated at 192/74. Pt ordered her dinner, received her scheduled Oxycontin 10mg and 1000mg Tylenol. Pt reports pain better after one
hour. Pt resting comfortably, call cary within reach.
[2024-02-24] MEDS: MIRALAX 17 GRAMS PO (21:36)
[2024-02-24] MEDS: LIPITOR 10 MG PO (21:37)
[2024-02-24] MEDS: ROXICODONE 10 MG PO (21:37)
[2024-02-24 23:31] VITALS: BP 128/60
[2024-02-25 06:00] VITALS: BMI 21.0
[2024-02-25] MEDS: ROXICODONE 10 MG PO ×3 (06:14→23:11)
[2024-02-25 06:44] LABS: Hematocrit 30.2 % (37.0-47.0); Mean Corp Hgb Conc. 33.1 g/dL (33.0-37.0); Mean Corpuscular Hgb 32.4 pg (27.0-31.0); Mean Corpuscular Volume 97.7 fL (81.0-99.0); Mean Platelet Volume 12.4 fL (7.4-10.4); Platelet Count 90 10^3/uL (130-400); Red Blood Cell Count 3.09 10^6/uL (4.20-5.40); White Blood Cell Count 4.6 10^3/uL (4.8-10.8)
[2024-02-25 07:00] VITALS: BP 135/70
[2024-02-25 07:17] LABS: Blood Urea Nitrogen 16 mg/dl (7-17); Carbon Dioxide 29 mmol/L (22-30); Chloride 103 mmol/L (98-107); Estimated Creatinine Clearance 61 ml/min; Glucose 68 mg/dl (70-99); Magnesium 1.8 mg/dl (1.6-2.3); Potassium 4.2 mmol/L (3.5-5.1); Sodium 136 mmol/L (135-145); eGFR > 60.00
[2024-02-25] MEDS: CYMBALTA DELAYED RELEASE 30 MG PO (08:09)
[2024-02-25] MEDS: LIDOCAINE 4% PATCH 1 PATCH TOPICAL (08:09)
[2024-02-25] MEDS: MIRALAX PO ×2 (08:09→20:18)
[2024-02-25] MEDS: OXYCONTIN (CONTROLLED RELEASE) 10 MG PO ×2 (08:10→20:19)
[2024-02-25] MEDS: REFRESH EYE DROPS (PF) 1 DROPS OPHTH ×4 (08:10→20:26)
[2024-02-25] MEDS: ZOVIRAX 400 MG PO (08:10)
[2024-02-25] MEDS: TYLENOL 1000 MG PO ×3 (08:10→23:11)
[2024-02-25] MEDS: VITAMIN B-6 100 MG PO (08:10)
[2024-02-25] MEDS: SENOKOT 8.59999999999999964 MG PO (08:10)
[2024-02-25] MEDS: ZESTRIL 40 MG PO (10:28)
[2024-02-25 11:16] VITALS: BP 110/69; PULSE 88
[2024-02-25 11:20] VITALS: BP 110/69
--- NOTE | 2024-02-25 11:29 | W.PN.HOSP.TC ---
Today's Communication/Plan
-
see A/P
Assessment / Plan
Assessment / Plan
69 y/o female with a past medical history of multiple myeloma (status post stem cell transplant), hypertension, hyperlipidemia, and compression fractures of T10, T12, L2, and L3 who presented for acute on chronic low back pain. She has a history of
chronic pain due to multiple myeloma and compression fractures. 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 She recently moved to a new facility and she noted her current pain regimen includes medications ordered
'as needed' and she has had difficulty receiving those while at the facility. She admitted to using patches in the past for pain but denies relief from these types of medications. She reports that she is scheduled for a kyphoplasty on 02/22/24.
A/P:
# Uncontrolled Pain secondary to Subacute Compression Fractures
Decrease OxyContin to 10mg Q12H with plan to stop prior to discharge
Continue oxycodone 10mg q6h prn severe pain, Dilaudid for breakthrough.
Cont high-dose ATC Tylenol, Lidocaine patch
Cont current bowel regimen, may need to increase if constipation occurs
MRI thoracic and lumbar spine noted increased compression fractures in the lower thoracic and lumbar spine including chronic compression of T10, superior endplate of T11, severe compression of T12, superior endplate of L2, severe compression of L3
and significant bone marrow edema and inferior endplate compression of L4.
s/p T12 and L3 percutaneous vertebroplasty and L2 percutaneous vertebroplasty with augmentation by IR 5/
PT/OT recc SNF
# R sided red eye likely viral conjunctivitis, resolved
Cont refresh eyedrop PRN
# Multiple Myeloma s/p stem cell transplant in 2016- Treatment refractory per prior notes
# Pancytopenia
Follow-up with Hem/Onc at [facility]
Monitor CBC
# Mild Hypercalcemia
Could be due to Multiple Myeloma
Monitor BMP/calcium
# Essential Hypertension
Continue lisinopril with hold parameters
# Hyperlipidemia
Continue atorvastatin
DVT proph: Lovenox SQ
Code Status: DNR
Dispo: SNF
Anticipated Discharge: 24 - 48 hours
Subjective/Interval History
-
Date of Service: February 25, 2024
Objective Data
-
Labs:
Laboratory Results
02/25/24
05:58
WBC 4.6 L
Hgb 10.0 L
Hct 30.2 L
Plt Count 90 L
Sodium 136
Potassium 4.2
Chloride 103
Carbon Dioxide 29
BUN 16
Creatinine 0.7
Glucose 68 L
Calcium 11.0 H
Vital Signs:
Vital Signs
Temp Pulse Resp BP Pulse Ox
36.8 C 85 16 135/70 92
02/25/24 07:00 02/25/24 10:28 02/25/24 07:00 02/25/24 10:28 02/25/24 07:00
I&O
02/24/24 02/25/24 02/26/24
06:59 06:59 06:59
Intake Total 480 / 480 1040 / 1040
Balance 480 / 480 1040 / 1040
Review of Systems
-
Musculoskeletal: Reports Other (back pain has improved )
Physical Exam
-
General: Well Developed, Well Nourished, No Apparent Distress and Comfortable
HEENT: Normocephalic and Atraumatic
Respiratory: Clear to Auscultation and Non Labored Respirations; Negative Accessory Resp Muscle Use
Cardiac: Regular Rhythm and S1/S2
GI: Soft
Neuro: Awake and Alert
Psych: Calm and Intact Judgement/Insight
Data Reviewed
-
Diagnostic Radiology: Report Reviewed by me
MRI: Report Reviewed by me, Discussed with Patient and Discussed with Family
Labs: Labs Reviewed by me
--- NOTE | 2024-02-25 13:39 | W.PN.UPDATE ---
Update Note
Progress Note Update
- Saw patient earlier this afternoon
- OOB in chair, eating lunch. No obvious distress. Says she continues to have back pain but is improved. She does have multiple additional/untreated fractures. If her residual pain cannot be adequately treated conservatively we can consider treating
additional levels in the future.
[2024-02-25 15:00] VITALS: BP 136/58
--- NOTE | 2024-02-25 15:09 | CM ---
Case management following for d/c planning
Pt accepted at [facility], the [facility] and [facility] - pending bed availability on day of d/c
Spoke with pts sister Yahaira - preference would be the [facility]
CM will cont to follow for d/c needs
Plan - snf at d/c - family prefers the [facility]
[2024-02-25] MEDS: LOVENOX 40 MG SC (18:09)
[2024-02-25] MEDS: FLEXERIL 5 MG PO (18:09)
[2024-02-25] MEDS: LIPITOR 10 MG PO (20:25)
[2024-02-25] MEDS: SENOKOT PO (20:25)
[2024-02-25 23:00] VITALS: BP 143/68
[2024-02-26 06:00] VITALS: BMI 22.5
[2024-02-26 07:00] VITALS: BP 118/54
[2024-02-26 08:08] LABS: Hematocrit 28.8 % (37.0-47.0); Hemoglobin 9.3 g/dL (12.0-16.0); Mean Corp Hgb Conc. 32.3 g/dL (33.0-37.0); Mean Corpuscular Hgb 32.5 pg (27.0-31.0); Mean Corpuscular Volume 100.7 fL (81.0-99.0); Mean Platelet Volume 12.3 fL (7.4-10.4); Platelet Count 83 10^3/uL (130-400); Red Blood Cell Count 2.86 10^6/uL (4.20-5.40); Red Cell Dist. Width 15.1 % (11.5-14.5); White Blood Cell Count 3.4 10^3/uL (4.8-10.8)
[2024-02-26] MEDS: LIDOCAINE 4% PATCH 1 PATCH TOPICAL (08:17)
[2024-02-26] MEDS: CYMBALTA DELAYED RELEASE 30 MG PO (08:18)
[2024-02-26] MEDS: VITAMIN B-6 100 MG PO (08:18)
[2024-02-26] MEDS: OXYCONTIN (CONTROLLED RELEASE) 10 MG PO ×2 (08:18→22:24)
[2024-02-26] MEDS: SENOKOT PO (08:19)
[2024-02-26] MEDS: MIRALAX PO ×2 (08:19→22:23)
[2024-02-26] MEDS: TYLENOL 1000 MG PO ×2 (08:19→17:16)
[2024-02-26] MEDS: REFRESH EYE DROPS (PF) 1 DROPS OPHTH ×4 (08:21→22:24)
[2024-02-26] MEDS: ZOVIRAX 400 MG PO (08:21)
[2024-02-26] MEDS: ZESTRIL PO (08:21)
[2024-02-26 08:36] LABS: Blood Urea Nitrogen 18 mg/dl (7-17); Calcium 10.7 mg/dl (8.4-10.2); Carbon Dioxide 30 mmol/L (22-30); Chloride 101 mmol/L (98-107); Estimated Creatinine Clearance 61 ml/min; Glucose 91 mg/dl (70-99); Magnesium 1.7 mg/dl (1.6-2.3); Potassium 4.1 mmol/L (3.5-5.1); Sodium 136 mmol/L (135-145); eGFR > 60.00
[2024-02-26] MEDS: ROXICODONE 10 MG PO ×2 (11:02→18:37)
--- NOTE | 2024-02-26 11:09 | W.PN.HOSP.TC ---
Today's Communication/Plan
-
see A/P
Assessment / Plan
Assessment / Plan
69 y/o female with a past medical history of multiple myeloma (status post stem cell transplant), hypertension, hyperlipidemia, and compression fractures of T10, T12, L2, and L3 who presented for acute on chronic low back pain. She has a history of
chronic pain due to multiple myeloma and compression fractures. 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 She recently moved to a new facility and she noted her current pain regimen includes medications ordered
'as needed' and she has had difficulty receiving those while at the facility. She admitted to using patches in the past for pain but denies relief from these types of medications. She reports that she is scheduled for a kyphoplasty on 02/22/24.
A/P:
# Uncontrolled Pain secondary to Subacute Compression Fractures
Decrease OxyContin to 10mg Q12H with plan to stop prior to discharge
Continue oxycodone 10mg q6h prn severe pain, Dilaudid for breakthrough.
Cont high-dose ATC Tylenol, Lidocaine patch
Cont current bowel regimen, may need to increase if constipation occurs
MRI thoracic and lumbar spine noted increased compression fractures in the lower thoracic and lumbar spine including chronic compression of T10, superior endplate of T11, severe compression of T12, superior endplate of L2, severe compression of L3
and significant bone marrow edema and inferior endplate compression of L4.
s/p T12 and L3 percutaneous vertebroplasty and L2 percutaneous vertebroplasty with augmentation by IR 5/
PT/OT recc SNF
# Now BL red eye, likely conjunctivitis
Pt was getting refresh eyedrop without improvement
add Cipro eye drop (to cover for bacterial conjunctivitis) and Antihistamine eye drop with Ketotifen
# Multiple Myeloma s/p stem cell transplant in 2016- Treatment refractory per prior notes
# Pancytopenia
Follow-up with Hem/Onc at [facility]
Monitor CBC
# Mild Hypercalcemia
Could be due to Multiple Myeloma
Monitor BMP/calcium
# Essential Hypertension
Continue lisinopril with hold parameters
# Hyperlipidemia
Continue atorvastatin
DVT proph: Lovenox SQ
Code Status: DNR
Dispo: SNF
DW RN
DW sister at bedside
Anticipated Discharge: 24 - 48 hours
Subjective/Interval History
-
Date of Service: February 26, 2024
Objective Data
-
Labs:
Laboratory Results
02/26/24
07:32
WBC 3.4 L
Hgb 9.3 L
Hct 28.8 L
Plt Count 83 L
Sodium 136
Potassium 4.1
Chloride 101
Carbon Dioxide 30
BUN 18 H
Creatinine 0.7
Glucose 91
Calcium 10.7 H
Vital Signs:
Vital Signs
Temp Pulse Resp BP Pulse Ox
37.1 C 78 18 118/54 95
02/26/24 07:00 02/26/24 07:00 02/26/24 07:00 02/26/24 08:21 02/26/24 07:00
I&O
02/25/24 02/26/24 02/27/24
06:59 06:59 06:59
Intake Total 1040 / 1040 480 / 480 0 / 0
Output Total 200 / 200
Balance 1040 / 1040 280 / 280 0 / 0
Review of Systems
-
Musculoskeletal: Reports Other (back pain has improved )
Physical Exam
-
General: Well Developed, Well Nourished, No Apparent Distress and Comfortable
HEENT: Normocephalic, Atraumatic, [place] Conjunctivae and Other (BL red eyes)
Respiratory: Clear to Auscultation and Non Labored Respirations; Negative Accessory Resp Muscle Use
Cardiac: Regular Rhythm and S1/S2
GI: Soft
Neuro: Awake and Alert
Psych: Calm and Intact Judgement/Insight
Data Reviewed
-
Diagnostic Radiology: Report Reviewed by me
MRI: Report Reviewed by me, Discussed with Patient and Discussed with Family
Labs: Labs Reviewed by me
[2024-02-26] MEDS: CILOXAN 0.3% OPHTHALMIC SOLUTION 1 DROP BOTH EYES ×3 (12:27→22:18)
[2024-02-26] MEDS: ZADITOR 1 DROP BOTH EYES ×2 (13:00→22:19)
[2024-02-26 15:00] VITALS: BP 121/55
[2024-02-26 15:13] VITALS: BP 117/53; PULSE 86; O2SAT 96
[2024-02-26] MEDS: LOVENOX 40 MG SC (17:18)
[2024-02-26] MEDS: CILOXAN 0.3% OPHTHALMIC SOLUTION BOTH EYES (22:18)
[2024-02-26] MEDS: LIPITOR 10 MG PO (22:24)
[2024-02-26] MEDS: SENOKOT 8.59999999999999964 MG PO (22:24)
[2024-02-26 23:00] VITALS: BP 153/70
[2024-02-27] MEDS: TYLENOL PO (01:30)
[2024-02-27] MEDS: CILOXAN 0.3% OPHTHALMIC SOLUTION BOTH EYES (05:33)
[2024-02-27 06:00] VITALS: BMI 21.1
[2024-02-27 07:00] VITALS: BP 140/65
[2024-02-27 07:32] LABS: Hematocrit 27.7 % (37.0-47.0); Hemoglobin 9.2 g/dL (12.0-16.0); Mean Corp Hgb Conc. 33.2 g/dL (33.0-37.0); Mean Corpuscular Hgb 32.4 pg (27.0-31.0); Mean Corpuscular Volume 97.5 fL (81.0-99.0); Mean Platelet Volume 11.7 fL (7.4-10.4); Platelet Count 88 10^3/uL (130-400); Red Blood Cell Count 2.84 10^6/uL (4.20-5.40); Red Cell Dist. Width 14.8 % (11.5-14.5)
[2024-02-27 08:02] LABS: Blood Urea Nitrogen 12 mg/dl (7-17); Carbon Dioxide 28 mmol/L (22-30); Chloride 103 mmol/L (98-107); Estimated Creatinine Clearance 71 ml/min; Glucose 89 mg/dl (70-99); Potassium 3.8 mmol/L (3.5-5.1); Sodium 138 mmol/L (135-145); eGFR > 60.00
[2024-02-27] MEDS: TYLENOL 1000 MG PO ×3 (08:40→23:25)
[2024-02-27] MEDS: OXYCONTIN (CONTROLLED RELEASE) 10 MG PO (08:40)
[2024-02-27] MEDS: CILOXAN 0.3% OPHTHALMIC SOLUTION 1 DROP BOTH EYES ×2 (08:43→12:39)
[2024-02-27] MEDS: CYMBALTA DELAYED RELEASE 30 MG PO (08:44)
[2024-02-27] MEDS: LIDOCAINE 4% PATCH 1 PATCH TOPICAL (08:44)
[2024-02-27] MEDS: REFRESH EYE DROPS (PF) 1 DROPS OPHTH ×4 (08:44→23:15)
[2024-02-27] MEDS: VITAMIN B-6 100 MG PO (08:45)
[2024-02-27] MEDS: SENOKOT PO (08:45)
[2024-02-27] MEDS: MIRALAX PO (08:45)
[2024-02-27] MEDS: ZOVIRAX 400 MG PO (08:45)
[2024-02-27] MEDS: ZESTRIL 40 MG PO (08:47)
[2024-02-27] MEDS: ZADITOR 1 DROP BOTH EYES (09:00)
[2024-02-27] MEDS: ROXICODONE 10 MG PO ×2 (10:16→18:16)
--- NOTE | 2024-02-27 13:41 | W.PN.HOSP.TC ---
Today's Communication/Plan
-
see A/P
Assessment / Plan
Assessment / Plan
69 y/o female with a past medical history of multiple myeloma (status post stem cell transplant), hypertension, hyperlipidemia, and compression fractures of T10, T12, L2, and L3 who presented for acute on chronic low back pain. She has a history of
chronic pain due to multiple myeloma and compression fractures. 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 She recently moved to a new facility and she noted her current pain regimen includes medications ordered
'as needed' and she has had difficulty receiving those while at the facility. She admitted to using patches in the past for pain but denies relief from these types of medications. She reports that she is scheduled for a kyphoplasty on 02/22/24.
A/P:
# Uncontrolled Pain secondary to Subacute Compression Fractures
Further decrease OxyContin to 10mg daily with plan to stop prior to discharge
Continue oxycodone 10mg q6h prn severe pain, Dilaudid for breakthrough.
Cont high-dose ATC Tylenol, Lidocaine patch
Cont current bowel regimen, may need to increase if constipation occurs
MRI thoracic and lumbar spine noted increased compression fractures in the lower thoracic and lumbar spine including chronic compression of T10, superior endplate of T11, severe compression of T12, superior endplate of L2, severe compression of L3
and significant bone marrow edema and inferior endplate compression of L4.
s/p T12 and L3 percutaneous vertebroplasty and L2 percutaneous vertebroplasty with augmentation by IR 5/
PT/OT recc SNF
# BL red eye, conjunctivitis vs seasonal allergy?
Pt was getting refresh eyedrop without improvement
was added Cipro eye drop and Antihistamine eye drop ketotifen with worsening symptoms- will stop both
Start Zyrtec daily x6 days and Benadryl x1 dose, first dose /
Informed that she will need outpt opthal eval
Monitor red eyes
# Multiple Myeloma s/p stem cell transplant in 2016- Treatment refractory per prior notes
# Pancytopenia
Follow-up with Hem/Onc at [facility]
Monitor CBC
# Mild Hypercalcemia
Could be due to Multiple Myeloma
Monitor BMP/calcium
# Essential Hypertension
Continue lisinopril with hold parameters
# Hyperlipidemia
Continue atorvastatin
DVT proph: Lovenox SQ
Code Status: DNR
Dispo: SNF
DW CM
DW sister at bedside
Anticipated Discharge: 24 - 48 hours
Subjective/Interval History
-
Date of Service: February 27, 2024
Objective Data
-
Labs:
Laboratory Results
02/27/24
06:06
WBC 3.0 L
Hgb 9.2 L
Hct 27.7 L
Plt Count 88 L
Sodium 138
Potassium 3.8
Chloride 103
Carbon Dioxide 28
BUN 12
Creatinine 0.6
Glucose 89
Calcium 11.0 H
Vital Signs:
Vital Signs
Temp Pulse Resp BP Pulse Ox
36.4 C 80 17 140/65 96
02/27/24 07:00 02/27/24 07:00 02/27/24 07:00 02/27/24 08:47 02/27/24 07:00
I&O
02/26/24 02/27/24 02/28/24
06:59 06:59 06:59
Intake Total 480 / 480 1380 / 1380 240 / 240
Output Total 200 / 200
Balance 280 / 280 1380 / 1380 240 / 240
Review of Systems
-
EENT: Reports Other (BL red eyes)
Musculoskeletal: Reports Other (back pain has improved )
Physical Exam
-
General: Well Developed, Well Nourished, No Apparent Distress, Comfortable and Appears Chronically Ill
HEENT: Normocephalic, Atraumatic, [place] Conjunctivae and Other (BL red eyes, worsened )
Respiratory: Clear to Auscultation and Non Labored Respirations; Negative Accessory Resp Muscle Use
Cardiac: Regular Rhythm and S1/S2
GI: Soft
Neuro: Awake and Alert
Psych: Calm and Intact Judgement/Insight
Data Reviewed
-
Diagnostic Radiology: Report Reviewed by me
MRI: Report Reviewed by me, Discussed with Patient and Discussed with Family
Labs: Labs Reviewed by me
[2024-02-27] MEDS: BENADRYL 25 MG PO (14:20)
[2024-02-27] MEDS: ZYRTEC 5 MG PO (14:20)
[2024-02-27 15:00] VITALS: BP 124/59
[2024-02-27] MEDS: LOVENOX SC (17:06)
[2024-02-27] MEDS: MIRALAX 17 GRAMS PO (17:07)
[2024-02-27 23:10] VITALS: BP 120/55
[2024-02-27] MEDS: LIPITOR 10 MG PO (23:16)
[2024-02-27] MEDS: SENOKOT 8.59999999999999964 MG PO (23:21)
[2024-02-28 06:00] VITALS: BMI 21.4
[2024-02-28 07:00] VITALS: BP 132/59
[2024-02-28 07:34] LABS: Hematocrit 29.1 % (37.0-47.0); Hemoglobin 9.5 g/dL (12.0-16.0); Mean Corp Hgb Conc. 32.6 g/dL (33.0-37.0); Mean Corpuscular Hgb 32.4 pg (27.0-31.0); Mean Corpuscular Volume 99.3 fL (81.0-99.0); Mean Platelet Volume 12.3 fL (7.4-10.4); Platelet Count 87 10^3/uL (130-400); Red Blood Cell Count 2.93 10^6/uL (4.20-5.40); Red Cell Dist. Width 14.8 % (11.5-14.5); White Blood Cell Count 3.4 10^3/uL (4.8-10.8)
[2024-02-28 08:03] LABS: Blood Urea Nitrogen 15 mg/dl (7-17); Calcium 10.9 mg/dl (8.4-10.2); Carbon Dioxide 29 mmol/L (22-30); Chloride 103 mmol/L (98-107); Estimated Creatinine Clearance 71 ml/min; Glucose 101 mg/dl (70-99); Potassium 4.1 mmol/L (3.5-5.1); Sodium 136 mmol/L (135-145); eGFR > 60.00
[2024-02-28] MEDS: LIDOCAINE 4% PATCH 1 PATCH TOPICAL (08:10)
[2024-02-28] MEDS: ZESTRIL 40 MG PO (08:11)
[2024-02-28] MEDS: TYLENOL 1000 MG PO ×2 (08:11→15:34)
[2024-02-28] MEDS: ZOVIRAX 400 MG PO (08:11)
[2024-02-28] MEDS: ZYRTEC 5 MG PO (08:12)
[2024-02-28] MEDS: SENOKOT 8.59999999999999964 MG PO (08:12)
[2024-02-28] MEDS: VITAMIN B-6 100 MG PO (08:12)
[2024-02-28] MEDS: CYMBALTA DELAYED RELEASE 30 MG PO (08:13)
[2024-02-28] MEDS: OXYCONTIN (CONTROLLED RELEASE) 10 MG PO (08:13)
[2024-02-28] MEDS: REFRESH EYE DROPS (PF) 1 DROPS OPHTH ×3 (08:13→18:21)
[2024-02-28] MEDS: MIRALAX PO ×2 (08:13→08:15)
--- NOTE | 2024-02-28 09:58 | W.PN.HOSP.TC ---
Today's Communication/Plan
-
Discharge today
Assessment / Plan
Assessment / Plan
Physical Exam
General: Not in acute distress
HEENT: Normocephalic, Atraumatic. Bilateral periorbital skins redness - nontender. No pain on EOMI test, PERRL, visual acuity intact in both eyes.
Respiratory: Clear to Auscultation and Non Labored Respirations
Cardiac: Regular Rhythm and S1/S2
GI: Soft. Nontender. Positive bowel sounds.
Neuro: Awake and Alert
Psych: Calm and Intact Judgement/Insight

Assessment/Plan
69 y/o female with a past medical history of multiple myeloma (status post stem cell transplant), hypertension, hyperlipidemia, and compression fractures of T10, T12, L2, and L3 who presented for acute on chronic low back pain. She has a history of
chronic pain due to multiple myeloma and compression fractures. 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 She recently moved to a new facility and she noted her current pain regimen includes medications ordered
'as needed' and she has had difficulty receiving those while at the facility. She admitted to using patches in the past for pain but denies relief from these types of medications. She reports that she is scheduled for a kyphoplasty on 02/22/24.
A/P:
# Uncontrolled Pain secondary to Subacute Compression Fractures
Weaning off Oxycontin: further decrease OxyContin to 10mg daily with plan to stop prior to discharge
Continue oxycodone 10mg q6h prn severe pain
Cont high-dose ATC Tylenol, Lidocaine patch
Cont current bowel regimen, may need to increase if constipation occurs
MRI thoracic and lumbar spine noted increased compression fractures in the lower thoracic and lumbar spine including chronic compression of T10, superior endplate of T11, severe compression of T12, superior endplate of L2, severe compression of L3
and significant bone marrow edema and inferior endplate compression of L4.
s/p T12 and L3 percutaneous vertebroplasty and L2 percutaneous vertebroplasty with augmentation by IR 02/23
PT/OT recc SNF
# Bilateral Periorbital Erythema -- suspected to be allergies
No actual conjunctival redness, no pain on movement of either eye, no visual impairment
Pt was getting refresh eyedrop without improvement
was added Cipro eye drop and Antihistamine eye drop ketotifen with worsening symptoms -- these were both stopped
Zyrtec daily x6 days and Benadryl x1 dose, first dose 02/27/24 was started
Informed that she will need outpt opthal eval
Monitor red eyes
# Multiple Myeloma s/p stem cell transplant in 2016- Treatment refractory per prior notes
# Pancytopenia
Follow-up with Hem/Onc at [facility]
Monitor CBC
# Mild Hypercalcemia
Could be due to Multiple Myeloma
Monitor BMP/calcium
# Essential Hypertension
Continue lisinopril with hold parameters
# Hyperlipidemia
Continue atorvastatin
DVT prophylaxis: Lovenox SQ
Code Status: DNR
Dispo: SNF
More than 30 minutes spent in discharge including
Final examination of the patient
Summarizing hospital stay
Instructions for continuing care to all relevant caregivers
Preparation of discharge records, prescriptions, and referral forms
Total time spent (in minutes): 34
Anticipated Discharge: Today
Subjective/Interval History
-
Date of Service: February 28, 2024
Patient was seen and examined. She reported that the skin around her eyes are still red and swollen. She denied any eye pain or any disturbance in her actual vision.
Objective Data
-
Labs:
Laboratory Results
02/28/24
07:00
WBC 3.4 L
Hgb 9.5 L
Hct 29.1 L
Plt Count 87 L
Sodium 136
Potassium 4.1
Chloride 103
Carbon Dioxide 29
BUN 15
Creatinine 0.6
Glucose 101 H
Calcium 10.9 H
Vital Signs:
Vital Signs
Temp Pulse Resp BP Pulse Ox
98.4 F 85 16 132/59 95
02/28/24 07:00 02/28/24 08:11 02/28/24 07:00 02/28/24 08:11 02/28/24 07:00
I&O
02/27/24 02/28/24 02/29/24
06:59 06:59 06:59
Intake Total 1380 / 1380 1500 / 1500
Balance 1380 / 1380 1500 / 1500
[2024-02-28] MEDS: ROXICODONE 10 MG PO ×2 (12:45→17:57)
--- NOTE | 2024-02-28 13:56 | CM ---
Addendum entered by Charissa Thomas 02/28/24 14:32:
Transport at 7PM - Notified Crystal at the [facility], pt and pts sister Yahaira
Original Note:
Pt ready for d/c
Spoke with Marita at the [facility] - pt/family preference
Bed available today
Spoke with pt and her sister Yahaira - aware bed available - agree with facility
Discussed IMM
Plan - transfer to [facility]
R - [phone]
- [phone]
[2024-02-28 15:00] VITALS: BP 124/60
--- NOTE | 2024-02-28 15:28 | W.DS.TRANS ---
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
-
Discharge Instructions:
Discharge Diagnosis/Procedures Back pain due to several compression fractures
status post vertebroplasty
Uncontrolled Pain secondary to Subacute
Compression Fractures
Bilateral Periorbital Erythema -- concerning for
allergies
Multiple Myeloma status post stem cell
transplant in 2016 - Treatment refractory per
prior notes
Pancytopenia
Mild Hypercalcemia
Essential Hypertension
Hyperlipidemia
Diet As tolerated
Activity As tolerated
Driving Restrictions Not until seen by your Dr
Other Services PT,OT
Instructions:
Stand-Alone Forms:
Changes to Home Medications: Yes
Discharge Medications:
DC Medications w/original date entered in [facility] [employer]
atorvastatin 10 mg tablet 10 mg PO HS High Cholesterol 09/25/23
lisinopril 40 mg tablet 40 mg PO DAILY Blood Pressure 09/25/23
acyclovir 400 mg tablet 400 mg PO DAILY ANTI-VIRAL 02/17/24
duloxetine 30 mg capsule,delayed release 30 mg PO DAILY Mental Health/Anxiety 02/17/24
folic acid 1 mg tablet 1 mg PO DAILY Supplement 02/17/24
naloxone 4 mg/actuation nasal spray 4 mg intranasal Q3M PRN opiod overdose 02/17/24
pyridoxine (vitamin B6) 100 mg tablet 100 mg PO DAILY Supplement 02/17/24
acetaminophen 500 mg tablet (Tylenol Extra Strength) 1,000 mg (2 x 500 mg) PO Q8H #90 tabs 02/28/24
cetirizine 10 mg tablet 5 mg (1/2 x 10 mg) PO DAILY #30 tabs 02/28/24
lidocaine 4 % topical patch 1 patch topical DAILY #30 ea 02/28/24
oxycodone 10 mg tablet 10 mg PO Q6HPRN PRN severe pain #0 tabs 02/28/24
polyethylene glycol 3350 17 gram oral powder packet (HealthyLax) 17 g PO BID #30 ea 02/28/24
polyvinyl alcohol-povidone (PF) 1.4 %-0.6 % eye drops in a dropperette (Refresh Classic (PF)) 1 drp ophthalmic (eye) QID #30 ea 02/28/24
sennosides 8.6 mg tablet (Senna Laxative) 8.6 mg PO BID #60 tabs 02/28/24
Home Medication Changes
Scheduled Tylenol, Cetirizine, Lidocaine Patch, HealthyLax, Senna Laxative, and Refresh Classic Eye Drops are new medications.
Oxycodone changed to prn only.
PO Hydromorphone stopped.
Pending Results: No
Total time spent discharging patient (in min): 34
[2024-02-28] MEDS: LOVENOX SC (15:57)
--- NOTE | 2024-03-02 07:00 | W.DCSUMMARY ---
Discharge Summary
Discharge Data
Date of Admission: 02/17/24
Date of Discharge: 02/28/24
Total time spent discharging patient (in min): 34
-
Pending Results: No
Hospital Course
69 y/o female with a past medical history of multiple myeloma (status post stem cell transplant), hypertension, hyperlipidemia, and compression fractures of T10, T12, L2, and L3 who presented for acute on chronic low back pain. She has a history of
chronic pain due to multiple myeloma and compression fractures. She sustained a fall about 6 weeks prior to presentation which resulted in new compression fractures. She recently moved to a new facility and she noted that her current pain regimen
included medications ordered 'as needed' and she has had difficulty receiving those doses while staying at the facility. Patient as placed on scheduled high-dose Tylenol, oxycodone, dilaudid as well as lidocaine patch for pain and her pain improved.
Patient was originally scheduled for a kyphoplasty in a few days but patient's family and patient preferred to have the kyphoplasty/vertebroplasty done at [facility] prior to discharge.
Interventional radiology was consulted for kyphoplasty. Patient had a thoracic and lumbar spine MRI done on February 21, 2024 which showed compression fractures (please see full MRI reports from 02/21/24 for more details). Patient had a successful T12,
L2, L3 percutaneous vertebroplasty on February 24, 2024. Patient's pain improved and her medications were able to be changed to as needed Oxycodone only. Patient had some redness and swelling around her eyes, but no eye pain, no blurry vision, no redness
in the eyes themselves, and the impression was allergies. Zyrtec and Benadryl were given. Patient would need ophthalmology follow-up outpatient.
Discharge Plan
-
Patient Disposition: Alf/SNF
Discharge Diagnosis/Procedures: Back pain due to several compression fractures status post vertebroplasty
Uncontrolled Pain secondary to Subacute Compression Fractures
Bilateral Periorbital Erythema -- concerning for allergies
Multiple Myeloma status post stem cell transplant in 2016 - Treatment refractory per prior notes
Pancytopenia
Mild Hypercalcemia
Essential Hypertension
Hyperlipidemia
Condition: Fair
Diet: As tolerated
Activity: As tolerated
Driving Restrictions: Not until seen by your Dr
Other Services: PT and OT
Activity Restrictions/Additional Instructions:
Closely monitor for constipation and treat accordingly.
Referrals:
Roz Valdes MD [Family Provider] - in less than 1 week
Brian Mena MD [Active] - in two to three days
Additional Discharge Medication Instructions: Scheduled Tylenol, Cetirizine, Lidocaine Patch, HealthyLax, Senna Laxative, and Refresh Classic Eye Drops are new medications.
Oxycodone changed to prn only.
PO Hydromorphone stopped.
Prescriptions:
New
lidocaine 4 % Adhesive Patch,Medicated
1 patch topical DAILY Qty: 30 0RF
Rx Instructions:
Apply to lower back. Remove patch every evening.
polyethylene glycol 3350 [HealthyLax] 17 gram Powder In Packet
17 g PO BID Qty: 30 0RF
Refresh Classic (PF) 1.4-0.6 % Dropperette
1 drp ophthalmic (eye) QID Qty: 30 0RF
sennosides [Senna Laxative] 8.6 mg Tablet
8.6 mg PO BID Qty: 60 0RF
acetaminophen [Tylenol Extra Strength] 500 mg Tablet
1,000 mg PO Q8H Qty: 90 0RF
cetirizine 10 mg Tablet
5 mg PO DAILY Qty: 30 0RF
Continued
atorvastatin 10 mg Tablet
10 mg PO HS
lisinopril 40 mg Tablet
40 mg PO DAILY
acyclovir 400 mg Tablet
400 mg PO DAILY
folic acid 1 mg Tablet
1 mg PO DAILY
pyridoxine (vitamin B6) 100 mg Tablet
100 mg PO DAILY
duloxetine 30 mg Capsule,Delayed Release(Dr/Ec)
30 mg PO DAILY
naloxone 4 mg/actuation [place],Non-Aerosol
4 mg INTRANASAL Q3M PRN (Reason: opiod overdose)
Changed
oxycodone 10 mg Tablet
10 mg PO Q6HPRN PRN (Reason: severe pain) Qty: 0 0RF
Discontinued
hydromorphone [Dilaudid] 4 mg Tablet
4 mg PO Q6H PRN (Reason: severe pain)
oxycodone 10 mg Tablet
10 mg PO Q6H PRN (Reason: moderate pain)
Discharge Orders:
Discharge Patient (As Directed); Ordered 02/28/24
Ordered By: Roni Regan
Discharge Date and Time
Discharge Date/Time: 02/28/24 19:21
Print Language: [id number]
== END 2024-02-28 19:21 | DRG 516 ==
LOC: 3 WEST ACU 07:27
PROVIDERS: Internal Medicine; Physician Assistant; Physician Assistant Medical; ADMITTING PHYSICIAN Internal Medicine; ATTENDING PHYSICIAN Hospitalist; CONSULT PHYSICIAN Radiology Vascular & Interventional Radiology; EMERGENCY PHYSICIAN Emergency Medicine; FAMILY PHYSICIAN Internal Medicine
PROC: 0PU43JZ Supplement Thoracic Vertebra with Synthetic Substitute, Percutaneous Approach (ICD-10-PCS; 2024-02-24)
PROC: 0QU03JZ Supplement Lumbar Vertebra with Synthetic Substitute, Percutaneous Approach (ICD-10-PCS; 2024-02-24)
DX: S32.020A Wedge compression fracture of second lumbar vertebra, initial encounter for closed fracture (principal); C90.00 Multiple myeloma not having achieved remission; S22.080A Wedge compression fracture of T11-T12 vertebra, initial encounter for closed fracture; F11.20 Opioid dependence, uncomplicated; D61.818 Other pancytopenia; Z94.84 Stem cells transplant status; S32.030A Wedge compression fracture of third lumbar vertebra, initial encounter for closed fracture; W18.30XA Fall on same level, unspecified, initial encounter; Y92.9 Unspecified place or not applicable
CPT/HCPCS: 22512; 22513; 22514; 72072; 72110; 72146; 72148; 80048; 80053; 81003; 81015; 82040; 83690; 83735; 85025; 85027; 85610; 87070; 87086; 87147; 96374; 96376; 97116; 97162; 97166; 97530; 97535; 99285

== ENCOUNTER 2024-03-21 23:48 | Inpatient (IN) | payer MEDICARE, SELFPAY ==
[2024-03-21] VITALS (7 sets, daily range): BP systolic 117–138; BP diastolic 60–84; BMI 21.9
[2024-03-21 14:26] LABS: % Basophils 0.2 % (0-2); % Eosinophils 0.7 % (0-6); % Immature Granulocytes 0.5 % (0-0.5); % Lymphocytes 6.7 % (20.5-51.1); % Monocytes 9.9 % (1.7-9.3); Absolute Lymphocytes 0.3 10^3/uL (1.2-3.4); Absolute Monocytes 0.4 10^3/uL (0.1-0.6); Absolute Neutrophils 3.6 10^3/uL (1.4-6.5); Hemoglobin 10.4 g/dL (12.0-16.0); Mean Corp Hgb Conc. 33.5 g/dL (33.0-37.0); Mean Corpuscular Hgb 32.6 pg (27.0-31.0); Mean Corpuscular Volume 97.2 fL (81.0-99.0); Mean Platelet Volume 11.6 fL (7.4-10.4); Nucleated Red Blood Cells % 0 %; Platelet Count 91 10^3/uL (130-400); Red Blood Cell Count 3.19 10^6/uL (4.20-5.40); Red Cell Dist. Width 14.4 % (11.5-14.5); White Blood Cell Count 4.3 10^3/uL (4.8-10.8)
[2024-03-21 14:36] LABS: ALT (SGPT) 21 U/L (0-35); AST (SGOT) 37 U/L (14-36); Albumin 3.8 g/dl (3.5-5.0); Alkaline Phosphatase 146 U/L (38-126); Blood Urea Nitrogen 15 mg/dl (7-17); Calcium 12.1 mg/dl (8.4-10.2); Carbon Dioxide 29 mmol/L (22-30); Chloride 101 mmol/L (98-107); Estimated Creatinine Clearance 71 ml/min; Glucose 97 mg/dl (70-99); Potassium 4.5 mmol/L (3.5-5.1); Sodium 137 mmol/L (135-145); Total Bilirubin 0.8 mg/dl (0.2-1.3); Total Protein 6.9 g/dl (6.3-8.2); eGFR > 60.00
[2024-03-21 14:48] LABS: Troponin I < 0.012 ng/ml
--- NOTE | 2024-03-21 15:26 | ED.GENMED ---
History of Present Illness
General
Chief Complaint: Fall
Source: patient, records and ambulance crew
Exam Limitations: none
Time Seen by Provider: 03/21/24 15:11
Nursing documentation reviewed up to this point in time: agreed with
Travel History
Have you had any contact with someone who has COVID-19?: No
Do you have any symptoms of coronavirus? Fever > 100 degrees, chills, cough, shortness of breath, sore throat, loss of taste or smell, muscle aches, or headache?: No
History of Present Illness
History of Present Illness:
69-year-old female presents the emergency department complaining of a trip and fall on Wednesday onto her buttocks. She complains of low back pain and chest pain since the fall. She has a history of multiple compression fractures. She denies any
blood thinners. She states she does feel warm, and chills. Frequent UTIs.
Past History
Past History
ED Past Medical History: HTN, Hypercholesterolemia and Other (multiple myeloma 2012 stem cell txp 2016)
Social History
Tobacco: Former smoker
Alcohol: None
Drug: None
Review of Systems
Review of Systems
Allergies reviewed?: Yes
All Other Systems: Not applicable
Constitutional: Reports chills
EENT: Reports no symptoms
Respiratory: Reports no symptoms
Cardiac: Reports chest pain
ABD/GI: Reports no symptoms
: Reports no symptoms
Musculoskeletal: Reports back pain
Skin: Reports no symptoms
Neurological: Reports no symptoms
Endocrine: Reports no symptoms
Hematologic/Lymphatic: Reports no symptoms
Psychiatric: Reports no symptoms
Phy Exam
Physical Exam
Physical Exam:
Physical Exam
General: no apparent distress, not acutely ill
Neck: supple. no meningeal signs. normal posterior pharynx
Heart: s1/s2 regular rate and rhythm, no murmur. equal radial
pulses.
HEENT: Pupils equal round reactive to light, EOMIa
Lungs: no acute respiratory distress. Rhonchi bilaterally
Abdomen: normal bowel sounds. not tender. no CVAT
Neuro: alert and oriented. no focal neurological deficits cranial nerves II through XII intact
Skin: no rash
Psychiatric: well kept. interactive and cooperative
Extremities: no edema. no calf tenderness. negative homans. good distal pulses
Course
Orders/Labs/Results
Orders:
Orders
03/21/24 14:09
ECG [Electrocardiogram (*1)] Urgent
Reason for Study: Chest Pain
EKG- Treatment ONCE
03/21/24 14:18
Complete Blood Count/With Diff Urgent
Comprehensive Metabolic Panel Urgent
Troponin I Urgent
03/21/24 15:24
CR Lumbar Spine 2 Or 3 Views Urgent
Reason For Exam: fall, back pain
03/21/24 15:25
CR Chest - 2 Views Urgent
Comment:
Reason For Exam: fall, chest pain, hypoxia chills
03/21/24 15:26
CT Head W/o Iv Contrast Urgent
Comment:
Reason For Exam: fall 3 days ago
03/21/24 15:34
Straight cath- Treatment ONCE
03/21/24 15:37
Blood Culture Q30M
CAROL Source: Blood/Venous
Specimen Description:
03/21/24 15:38
COVID-19 Antigen Urgent
Source: Nasal Swab
Influenza A+B Rapid Molecular Urgent
CAROL Source: Nasal Swab
Specimen Description:
03/21/24 15:43
Lactic Acid Q4H
Comment: CANCEL 2nd LACTIC ACID IF 1st LACTIC ACID IS LESS THAN 2
Blood Culture Q30M
CAROL Source: Blood/Venous
Specimen Description:
03/21/24 15:50
Urinalysis Reflex To Culture Urgent
Date Specimen was Collected: 03/21/24
Time Specimen was Collected: 15:45
Comment: straight cath
Urine Microscopic Reflex Cult Urgent
Urine Culture Urgent
CAROL Source: U
Specimen Description:
Date Specimen was Collected: 03/21/24
Time Specimen was Collected: 15:45
03/21/24 18:35
CT Chest Pe Study Urgent
Comment:
Reason For Exam: hypoxia, chest pain
03/21/24 21:01
D-Dimer Urgent
03/21/24 21:20
Lorazepam [Ativan] 1 mg IV NOW STA
03/21/24 23:00
Flush (0.9% Sodium Chloride) [Flush (Nss)] See Dose Instructions IV PER PROTOCOL
03/21/24 23:37
Lorazepam [Ativan] 1 mg IV NOW STA
03/21/24 23:46
Procalcitonin Urgent
PCT Algorithmm Indication: Sepsis
Risperidone [Risperdal] 0.25 mg PO BID PRN
03/21/24 23:47
Consult Notification Routine
Specialty to Notify: Hematology
HEMATOLOGY CONSULT Routine
Consulting Provider: Manish Stapleton
Was physician already notified: No
Reason for consult: hypercalcemia, hx multiple myeloma
0.9% Sodium Chloride 500 ml [Nss] 500 ml IV BOLUS
Abnormal Lab Results
03/21/24 03/21/24 03/21/24
14:18 15:50 21:01
WBC 4.3 L 10^3/uL
(4.8-10.8)
RBC 3.19 L 10^6/uL
(4.20-5.40)
Hgb 10.4 L g/dL
(12.0-16.0)
Hct 31.0 L %
(37.0-47.0)
MCH 32.6 H pg
(27.0-31.0)
Plt Count 91 L 10^3/uL
(130-400)
MPV 11.6 H fL
(7.4-10.4)
Absolute Lymphs (auto) 0.3 L 10^3/uL
(1.2-3.4)
Neutrophils % 82.0 H %
(42.2-75.2)
Lymphocytes % 6.7 L %
(20.5-51.1)
Monocytes % 9.9 H %
(1.7-9.3)
D-Dimer 3.99 H ug/mlFEU
(0.00-0.50)
Calcium 12.1 H mg/dl
(8.4-10.2)
AST 37 H U/L
(14-36)
Alkaline Phosphatase 146 H U/L
(38-126)
Urine Ketones Trace A
(Negative)
Leukocyte Esterase Rfl Trace A
(Negative)
Urine Bacteria (Reflex) Moderate A
(Negative)
03/21/24 14:18
03/21/24 14:18
Vital Signs
Initial and Last Documented VS:
Initial Vital Signs
Temp Pulse Resp BP Pulse Ox
98.8 F 99 18 132/84 91
03/21/24 14:10 03/21/24 14:10 03/21/24 14:10 03/21/24 14:10 03/21/24 14:10
Last Documented Vital Signs
Temp Pulse Resp BP Pulse Ox
99.8 F 97 12 130/60 96
03/21/24 15:27 03/21/24 23:45 03/21/24 23:45 03/21/24 23:47 03/21/24 23:00
MDM/Problems Addressed
Differential Diagnosis Includes:
Intracranial hemorrhage, pneumothorax, pneumonia, PE, CHF
MDM/Problems Addressed:
69-year-old female with fall, hypoxia, unclear etiology. Mild temperature elevation 99.8. Unclear etiology. Admit to hospitalist for further evaluation.
Chronic conditions affecting care: HTN and CAD
Acute Exacerbation and/or Progression of Chronic Illness: HTN and CAD
*Radiology
Radiology exam reviewed: radiology read reviewed (CT head no acute findings, chest x-ray no acute findings, CT chest no acute findings, no PE)
*Pulse Oximetry
Patient hypoxic: yes
*EKG
Interpreted by ED Provider?: Yes
EKG Intrepretation Date: 03/21/24
EKG Intrepretation Time: 14:11
Interpretation: abnormal
Comparison EKG: no comparison EKG present
Heart Rate: 98
Rate: normal
Rhythm: sinus
[place]: left axis deviation
Interval: normal interval
QRS Pattern: normal QRS
Ischemia: no ischemia
*Disc Pad Grinding Machine Feeder Interpretation
Rate: normal
Interpretation: normal
Heart Rate: 95
Rhythm: sinus
*Critical Care Note
Total Time (30-74mins, 75-104mins- exclusive of procedures): Not Applicable
Patient Management
Social determinants of health affecting care: Living situation
Discussion with other providers: Hospitalist
Escalation/DeEscalation of care consider admission/obs:
admit indicated
ED Attending Note
-
Portions of this chart may have been created with voice recognition software.� Occasional wrong word or��sound alike� substitutions may have occurred due to the inherent limitations of voice recognition software.
Discharge Plan
Departure
Patient Disposition: Admit
Date of Disposition: 03/21/24
Time of Disposition: 23:16
Admit to: Telemetry
Presentation/result/management discussed w/ accepting MD/DO: Hospitalist
Patient with high blood pressure during this ER visit?: Yes
Condition: Fair
Discharge Problem:
Hypoxia, Fall
Prescriptions:
No Action
atorvastatin 10 mg Tablet
10 mg PO HS
lisinopril 40 mg Tablet
40 mg PO DAILY
folic acid 1 mg Tablet
1 mg PO DAILY
pyridoxine (vitamin B6) 100 mg Tablet
100 mg PO DAILY
duloxetine 30 mg Capsule,Delayed Release(Dr/Ec)
30 mg PO DAILY
naloxone 4 mg/actuation [place],Non-Aerosol
4 mg INTRANASAL Q3M PRN (Reason: opiod overdose)
lidocaine 4 % Adhesive Patch,Medicated
1 patch topical DAILY Qty: 30 0RF
Rx Instructions:
Apply to lower back. Remove patch every evening.
polyethylene glycol 3350 [HealthyLax] 17 gram Powder In Packet
17 g PO BID Qty: 30 0RF
sennosides [Senna Laxative] 8.6 mg Tablet
8.6 mg PO BID Qty: 60 0RF
acetaminophen [Tylenol Extra Strength] 500 mg Tablet
1,000 mg PO Q8H Qty: 90 0RF
cetirizine 10 mg Tablet
5 mg PO DAILY Qty: 30 0RF
morphine [MS Contin] 30 mg Tablet Extended Release
30 mg PO Q12H
magnesium hydroxide [Milk of Magnesia] 400 mg/5 mL Suspension
2,400 mg PO [id number] PRN (Reason: if no bm by 3rd day)
bisacodyl [Dulcolax (bisacodyl)] 10 mg Suppository
10 mg [place] Q8HPRN PRN (Reason: if no bm aftr mom)
Refresh Classic (PF) 1.4-0.6 % dropperette
1 drp BOTH EYES QID
oxycodone 10 mg tablet
15 mg PO Q4HPRN PRN (Reason: severe pain)
Referrals:
Butch Draper MD [Family Provider] -
Interventions
Interventions:
*Risk Screen - Suicide Last Done: 03/21/24 15:25
*General Assessment Last Done: 03/21/24 15:25
*Neglect/Abuse Screening Last Done: 03/21/24 15:25
*ED COVID-19 Vaccine History Last Done: 03/21/24 14:10
ED-Musculoskeletal Assessment Last Done: 03/21/24 14:15
ED- Neurological Assessment Last Done: 03/21/24 14:15
ED-Skin Assessment Last Done: 03/21/24 14:15
Discharge Date and Time
Print Language: CZECH
[2024-03-21 16:06] LABS: Urine Albumin Trace (Neg - Trace); Urine Bilirubin Negative (Negative); Urine Character Clear (Clear); Urine Color Yellow; Urine Glucose Negative (Negative); Urine Ketone Trace (Negative); Urine Leukocyte Trace (Negative); Urine Nitrite Negative (Negative); Urine Occult Blood Negative (Negative); Urine Specific Gravity 1.025 (<1.030); Urine Urobilinogen Negative (Neg - 1+)
[2024-03-21 16:09] LABS: Lactic Acid 0.7 mmol/L (0.7-2.0)
[2024-03-21 16:20] LABS: COVID-19 Antigen Negative (Negative)
[2024-03-21 16:27] LABS: Urine Red Blood Cell 0-2 /HPF (0-2); Urine White Cell 0-2 /HPF (0-5)
[2024-03-21 16:28] LABS: Urine Bacteria Moderate (Negative)
[2024-03-21 21:26] LABS: D-Dimer 3.99 ug/mlFEU (0.00-0.50)
[2024-03-21] MEDS: ATIVAN 1 MG IV ×2 (21:33→23:51)
--- NOTE | 2024-03-21 23:25 | HPS.HSE ---
Family Physician
-
Family Physician: Butch Draper
Chief Complaint
-
Back pain post fall 4 days ago, chest pain movement of arms
History of Present Illness
69-year-old female complaining of trip and fall on Wednesday 4 days ago onto her buttocks. She complains of low back pain and chest pain since the fall. She has history of multiple compression fractures she is on chronic oral opiates. She denies
head injury, LOC. She is currently confused with visual and auditory hallucinations she did require IV Ativan in the ER. She also reports dysuria, urgency and frequency for the past 4 to 5 days she denies bilateral flank pain. She has low-grade
temp 99.8 although denies fever and chills, cough, shortness of breath, abdominal pain, nausea, vomiting, diarrhea.
She has past medical history of frequent UTIs, multiple myeloma 2012 stem cell transplant 2015, macrocytic anemia, HTN, HLD, former smoker, history of multiple compression fractures on chronic oral opiates.
Medical History
Past Medical History
Past Medical History: Reports Other
Additional Past Medical History:
Multiple Myeloma
Compression Fractures
Chronic Pain with Opioid Dependence
Essential Hypertension
Hyperlipidemia
Past Surgical History: Reports Other
Additional Past Surgical History:
Rhinoplasty
Bladder Lift
Social History
Tobacco: Former Smoker (Quit at the age of 28)
Alcohol: Occasional (Every few months)
Personal: Single
Living: Alone
Employment: Disabled
Family History
Family History: Unable to Obtain
Allergies / Home Medications
Allergies reflects when Allergies were last updated in [facility].
Home Medications with original date entered in [facility]
Allergy/Medication List:
Allergies
Allergy/AdvReac Type Severity Reaction Status Date / Time
atenolol Allergy Unknown Unknown Verified 03/21/24 14:11
citalopram Allergy Unknown Verified 03/21/24 14:11
gabapentin Allergy Unknown Verified 03/21/24 14:11
losartan Allergy Unknown Verified 03/21/24 14:11
ondansetron Allergy Unknown Verified 03/21/24 14:11
orange Allergy Unknown Verified 03/21/24 14:11
oxycodone Allergy Unknown Verified 03/21/24 14:11
ragweed pollen Allergy Unknown Verified 03/21/24 14:11
tomato Allergy Unknown Verified 03/21/24 14:11
Home Medications
atorvastatin 10 mg tablet 10 mg PO HS High Cholesterol 09/25/23
lisinopril 40 mg tablet 40 mg PO DAILY Blood Pressure 09/25/23
duloxetine 30 mg capsule,delayed release 30 mg PO DAILY Mental Health/Anxiety 02/17/24
folic acid 1 mg tablet 1 mg PO DAILY Supplement 02/17/24
naloxone 4 mg/actuation nasal spray 4 mg intranasal Q3M PRN opiod overdose 02/17/24
pyridoxine (vitamin B6) 100 mg tablet 100 mg PO DAILY Supplement 02/17/24
acetaminophen 500 mg tablet (Tylenol Extra Strength) 1,000 mg (2 x 500 mg) PO Q8H #90 tabs 02/28/24
cetirizine 10 mg tablet 5 mg (1/2 x 10 mg) PO DAILY #30 tabs 02/28/24
lidocaine 4 % topical patch 1 patch topical DAILY #30 ea 02/28/24
polyethylene glycol 3350 17 gram oral powder packet (HealthyLax) 17 g PO BID #30 ea 02/28/24
sennosides 8.6 mg tablet (Senna Laxative) 8.6 mg PO BID #60 tabs 02/28/24
bisacodyl 10 mg rectal suppository (Dulcolax (bisacodyl)) 10 mg [place] Q8HPRN PRN if no bm aftr mom 03/21/24
magnesium hydroxide 400 mg/5 mL oral suspension (Milk of Magnesia) 2,400 mg PO [id number] PRN if no bm by 3rd day 03/21/24
morphine 30 mg tablet,extended release (MS Contin) 30 mg PO Q12H 03/21/24
oxycodone 10 mg tablet 15 mg PO Q4HPRN PRN severe pain 03/21/24
polyvinyl alcohol-povidone (PF) 1.4 %-0.6 % eye drops in a dropperette (Refresh Classic (PF)) 1 drp BOTH EYES QID 03/21/24
Review of Systems
-
History Source: Patient
A 12 point ROS was completed and negative except as noted: Yes
Constitutional: Reports Other (Confusion, visual auditory hallucinations shouting out who is that Anish, I am at the alliance party); Denies Fever or Chills
EENT: Denies Sore Throat or Runny Nose
Respiratory: Denies Cough or Trouble Breathing
Cardiac: Reports Chest Pain (Across chest with movement of arms); Denies Diaphoresis, Palpitations or Syncope
Abdomen/GI: Denies Abdominal Pain, Nausea, Vomiting, Diarrhea, Constipated, Bloody Stools or Black Stools
: Reports Dysuria, Frequency and Urgency; Denies Flank Pain or Incontinence
Musculoskeletal: Reports Other (Lower lumbar pain); Denies Joint Pain or Edema
Skin: Denies Itching or Rash
Neurological: Denies Dizzy, Headache or Weakness
Endocrine: Reports No Symptoms
Psych: Reports Calm and Audio or Visual Hallucinations
Physical Exam
Vital Signs
Vital Signs
Temp Pulse Resp BP Pulse Ox
99.8 F 98 19 134/69 96
03/21/24 15:27 03/21/24 21:45 03/21/24 21:45 03/21/24 19:00 03/21/24 21:15
Physical Exam
General: Comfortable, Conversant and Pain (Lower lumbar); No Chills
HEENT: NormoCephalic, Anicteric, PERRLA, [place] Conjunctivae, No Ptosis and Neck Nontender
Respiratory: Clear and Other (Tenderness to touch upper left and right chest but not sternal); No Wheezes, Rales or Rhonchi
Cardiac: S1/S2 and Regular Rhythm; No Murmur, Rub, Gallop or Peripheral Edema
Breast: Deferred by me
GI: Soft, Non Tender, Non Distended, Normal Bowel Sounds and No Hepatosplenomegaly
Rectal: Deferred by Provider
Genito-urinary: Deferred by me
Musculoskeletal: No Clubbing, No Cyanosis and No Edema
Skin: Warm and Dry; No Rash or Jaundice
Neuro: Nonfocal/grossly intact, No Sensory Deficits and Other (Drowsy oriented to name is confused shouting out who is at the [place], I am at the alliance party); No Slurred Speech, Facial Droop or Tremors
Psych: Calm
Laboratory Results
-
03/21/24 14:18
03/21/24 14:18
Laboratory Results
Lactic Acid Cancelled 03/21/24 19:45
Total Bilirubin 0.8 mg/dl (0.2-1.3) 03/21/24 14:18
AST 37 U/L (14-36) H 03/21/24 14:18
ALT 21 U/L (0-35) 03/21/24 14:18
Alkaline Phosphatase 146 U/L (38-126) H 03/21/24 14:18
Troponin I < 0.012 ng/ml 03/21/24 14:18
Data Reviewed
-
Diagnostic Radiology: Report Reviewed by me
CT Scan: Report Reviewed by me
Lab Data: Labs Reviewed by me
Impression/Plan
-
Impression/plan:
Admit to IMU
#Encephalopathy likely multifactorial, hypercalcemia, history of opiate use possible UTI
#Current auditory hallucinations, visual hallucinations shouting out 'who is at the door Anish,' 'I am at the [employer] party'
-Check Pro-Renaldo
-Seroquel 25 mg twice daily prn agitation/hallucinations
-Neurochecks every 4 hours
# Acute dysuria/urgency frequency concern for symptomatic UTI
#Hx frequent UTIs
-UA moderate, Trace leukocytes
-Follow urine culture
-IV Rocephin
-Follow CBC CMP
#Hypercalcemia unclear
-Check PTH, vitamin D
- IV NSS 1 L followed by IV NSS 100 cc/h
-Follow calcium
-Consult Oncology
EKG: NSR at 98 bpm, QTc 444 MS T wave inversions to 3 and aVF no previous EKGs
CT head no acute intracranial abnormalities.
There is mild- moderate diffuse cortical and cerebellar atrophy with moderate nonspecific white matter changes as described above.
Extensive small lytic lesions throughout the skull, stable compared with prior studies suggesting possible multiple myeloma
Right frontal miguel hole
#Multiple myeloma Hx Dx 2011
#History stem cell transplant 2015
#Chronic anemia-macrocytic/thrombocytopenia
WBC 4.3, Hgb 10.4, RBC 3.19, PLT 91
Hgb 10.4 appears baseline
-Continue folic acid 1 mg daily
#Chest pain post fall secondary to chest wall strain
Chest pain across chest with movement of arms no sternal chest pain
-COVID/flu negative
-Temp 99.8
-Check Pro-Renaldo
-PT/OT/case management eval
CT PE study: No evidence of PE
1. Mild linear curvilinear bands of parenchymal opacity in the posterior lung bases left greater than right most consistent with atelectasis
2.diminished stature T6 and T7 progressed from MRI 02/21/2024
3. -Subtle deformity of the central manubrium sternum possibly motion Degration correlation recommend exclude possibility of fracture
CXR: No acute cardiopulmonary disease
#Back pain secondary to mechanical fall with new diminished stature L1
#Hx T10, T11 chronic compression deformities on chronic oral opiates
-PT/OT/corrections caseworker consult
-Continue TESTER REGULATOR MS Contin 30 mg every 12 hours, oxycodone 15 mg p.o. every 4 severe pain, naloxone 4 mg as needed
-Continue senna twice daily
-Continue Tylenol 975 3 times daily scheduled
-Continue Lidoderm patch lower lumbar
Lumbar spine x-ray: Chronic compression deformities T10 and T11 appear stable
Suggestion of subtle diminished stature of L1 compared to prior exam
Hx vertebroplasty T12, L2 and L3
#HTN�benign
134/69
-Continue lisinopril 40 mg daily
#HLD
-Continue atorvastatin 10 mg at bedtime
#Hx nasal MRSA January 2024
#Anxiety
-Continue Cymbalta
#Former smoker
DVT prophylaxis
SCDs plt 91
DNR per patient did compared to recent admission January 2024 was also listed as DNR
--- NOTE | 2024-03-21 23:39 | W.PN.UPDATE ---
Addendum entered and electronically signed by Wally Barba MD 03/21/24 23:54:
Correction for level of care:
- IMU in place of IP MS
- check PCT
- BCx, UCx sent
- empiric IV vanco and Zosyn
Original Note:
Update Note
Progress Note Update
This note serves as an addendum to the H&P by dial polisher ALIRIO Gail JERMAN
HPI
69F recent admission(02/17/24- 02/28/24) HX treatment refractory multiple myeloma s/p BMT, several compression fractures s/p vertebroplasty, chr back pain, chr pancytopenia seen at ER for evalaution of Fall on .
Fall at home with IVF
- 4 days ago
- seems tripped and fall
- worsened narcotic depdent chr back pain
- HX multiple compression fractures
- Not on blood thinners
Low grade fever 99.8
- NEG UA
- NEG CXR
- HX Frequent UTIs.
PHX
Back pain due to several compression fractures status post vertebroplasty
Uncontrolled Pain secondary to Subacute Compression Fractures
Bilateral Periorbital Erythema concerning for allergies
Multiple Myeloma status post stem cell transplant in 2016 - Treatment refractory per prior notes
Pancytopenia
Mild Hypercalcemia
Essential Hypertension
Hyperlipidemia
PSHX
Rhinoplasty
Bladder Lift
Allergies
Allergy/AdvReac Type Severity Reaction Status Date / Time
atenolol Allergy Unknown Unknown Verified 03/21/24 14:11
citalopram Allergy Unknown Verified 03/21/24 14:11
gabapentin Allergy Unknown Verified 03/21/24 14:11
losartan Allergy Unknown Verified 03/21/24 14:11
ondansetron Allergy Unknown Verified 03/21/24 14:11
orange Allergy Unknown Verified 03/21/24 14:11
oxycodone Allergy Unknown Verified 03/21/24 14:11
ragweed pollen Allergy Unknown Verified 03/21/24 14:11
tomato Allergy Unknown Verified 03/21/24 14:11
Home Medications
atorvastatin 10 mg tablet 10 mg PO HS High Cholesterol 09/25/23
lisinopril 40 mg tablet 40 mg PO DAILY Blood Pressure 09/25/23
duloxetine 30 mg capsule,delayed release 30 mg PO DAILY Mental Health/Anxiety 02/17/24
folic acid 1 mg tablet 1 mg PO DAILY Supplement 02/17/24
naloxone 4 mg/actuation nasal spray 4 mg intranasal Q3M PRN opiod overdose 02/17/24
pyridoxine (vitamin B6) 100 mg tablet 100 mg PO DAILY Supplement 02/17/24
acetaminophen 500 mg tablet (Tylenol Extra Strength) 1,000 mg (2 x 500 mg) PO Q8H #90 tabs 02/28/24
cetirizine 10 mg tablet 5 mg (1/2 x 10 mg) PO DAILY #30 tabs 02/28/24
lidocaine 4 % topical patch 1 patch topical DAILY #30 ea 02/28/24
polyethylene glycol 3350 17 gram oral powder packet (HealthyLax) 17 g PO BID #30 ea 02/28/24
sennosides 8.6 mg tablet (Senna Laxative) 8.6 mg PO BID #60 tabs 02/28/24
bisacodyl 10 mg rectal suppository (Dulcolax (bisacodyl)) 10 mg [place] Q8HPRN PRN if no bm aftr mom 03/21/24
magnesium hydroxide 400 mg/5 mL oral suspension (Milk of Magnesia) 2,400 mg PO [id number] PRN if no bm by 3rd day 03/21/24
morphine 30 mg tablet,extended release (MS Contin) 30 mg PO Q12H 03/21/24
oxycodone 10 mg tablet 15 mg PO Q4HPRN PRN severe pain 03/21/24
polyvinyl alcohol-povidone (PF) 1.4 %-0.6 % eye drops in a dropperette (Refresh Classic (PF)) 1 drp BOTH EYES QID 03/21/24
Reviewed VS: T 99.8 HR 90s BP 135/70 RR19
PE
Gen: NAD
HEENT: anicteric, non traumatic
Neck: supple
Lungs: symmetric AE
Cor: RRR S1 S2
Abdomen: soft
SURGICAL CONSULTANT: alert and oriented. no focal neurological deficits c
MS: no edema
Psych: interactive and cooperative
Data
WCC 4.3
Hgb 10.4 - b/l mid 9s
Plt 91
Ca 12.1 - bl 10-11
NEG LA
NEG TPNI
NEG Covid
NEG flu A & B
NEG UA
UCx sent
BCx sent
EKG
NSR LAD
CXR; NAD
Lx spine
Since prior examination, the patient has undergone vertebroplasty with high attenuation methylmethacrylate noted superimposed at T12, L2, and L3.
Chronic compression deformities of T10 and T11 appears stable.
There is a suggestion of subtle diminished stature of L1 compared to prior examination.
The SI joints are patent and symmetric.
CT Chest PE study
No evidence of pulmonary embolism.
Mild linear and curvilinear bands of parenchymal opacity in the posterior lung bases, left greater than right, most consistent with atelectasis.
Diminished stature of T6 and T7 appear to have progressed compared to MRI examination from 02/21/2024.
Subtle deformity of the central manubrium sternum possibly on the basis of motion degradation as demonstrated on the axial projection. Correlation recommended to exclude the possibility of fracture.
HCT:
There are no acute intracranial abnormalities.
There is mild- moderate diffuse cortical and cerebellar atrophy with moderate nonspecific white matter changes as described above.
Extensive small lytic lesions throughout the skull, stable compared with prior studies suggesting possible multiple myeloma
Right frontal miguel hole
Last hospitalist admission: 02/17/24- 02/28/24
Discharge Diagnosis
Back pain due to several compression fractures status post vertebroplasty
Uncontrolled Pain secondary to Subacute Compression Fractures
Bilateral Periorbital Erythema concerning for allergies
Multiple Myeloma status post stem cell transplant in 2016 - Treatment refractory per prior notes
Pancytopenia
Mild Hypercalcemia
Essential Hypertension
Hyperlipidemia
ASSESSMENT & PLAN
AMS with hallucination of unclear origin suspect encephalopathy Diff precipitant; Hypercalcemia, Narcotics,
OSH Fall suspect mechanical
CTC suggest subtle deformity of the central manubrium sternum possibly on the basis of motion degradation as demonstrated on the axial projection.
- cont narcotic pain control
- Lidoderm patch
- Incentive spirometry
- IVF and f/u Calcium
- Seroquel PRN for hallucination
Significant hypercalcemia
Prior HX mild hypercalcemia
- IVF and f/u Ca in am
- check PTH
- Observe MS
Multiple Myeloma s/p stem cell transplant in 2015
Extensive small lytic lesions throughout the skull, stable compared with prior studies suggesting possible multiple myeloma
- Treatment refractory per prior notes
- Onco consult
HX Subacute Compression Fractures
- cont OP narcotics PRN
Essential Hypertension
-Continue lisinopril with hold parameters
Hyperlipidemia
-Continue atorvastatin
DVT Px: SCDs
Code: DNR
IP MS
[2024-03-22] VITALS (17 sets, daily range): BP systolic 134–192; BP diastolic 69–101; PULSE 101–107; O2SAT 97–99; BMI 20.9
[2024-03-22] MEDS: STERILE WATER FOR INJECTION 10 ML IV (00:18)
[2024-03-22] MEDS: ROCEPHIN 1000 MG IV (00:18)
[2024-03-22] MEDS: NSS 500 IV (00:18)
--- NOTE | 2024-03-22 02:49 | PTCARENOTE ---
Pt received from ED RN. Pt oriented to self. Very forgetful, disoriented to place and situation. Pt on 2L NC 02, SAT 99%. RR shallow. Pt oriented to room, frequently states she needs to 'go to the kitchen'. Rn at bedside to preform admission as
possible, pt unable to answer many of the admission questions.
[2024-03-22] MEDS: NSS 1000 IV ×3 (03:21→21:50)
[2024-03-22 04:32] LABS: % Basophils 0.2 % (0-2); % Eosinophils 1.2 % (0-6); % Immature Granulocytes 0.2 % (0-0.5); % Lymphocytes 7.7 % (20.5-51.1); % Monocytes 11.1 % (1.7-9.3); % Neutrophils 79.6 % (42.2-75.2); Absolute Eosinophils 0.1 10^3/uL (0-0.7); Absolute Lymphocytes 0.3 10^3/uL (1.2-3.4); Absolute Monocytes 0.5 10^3/uL (0.1-0.6); Absolute Neutrophils 3.4 10^3/uL (1.4-6.5); Hematocrit 29.8 % (37.0-47.0); Hemoglobin 9.8 g/dL (12.0-16.0); Mean Corp Hgb Conc. 32.9 g/dL (33.0-37.0); Mean Corpuscular Hgb 32.8 pg (27.0-31.0); Mean Corpuscular Volume 99.7 fL (81.0-99.0); Mean Platelet Volume 12.2 fL (7.4-10.4); Nucleated Red Blood Cells % 0 %; Platelet Count 77 10^3/uL (130-400); Red Blood Cell Count 2.99 10^6/uL (4.20-5.40); Red Cell Dist. Width 14.4 % (11.5-14.5); White Blood Cell Count 4.3 10^3/uL (4.8-10.8)
--- NOTE | 2024-03-22 04:35 | PTCARENOTE ---
Pt admitted to the unit. BP upon transfer 172/86(112) left arm . Which was retaken after pt was settled, left arm 179/93 (117). Retaken on the opposing arm reading 183/80(109), HR 87. Pt asymptomatic. Pt does have HX of HTN. LOG DECKMAN notified.
instructed to recheck BP this AM, and administer ordered lisinopril for Am if BP remains high.
[2024-03-22 04:53] LABS: ALT (SGPT) 21 U/L (0-35); AST (SGOT) 38 U/L (14-36); Albumin 3.7 g/dl (3.5-5.0); Alkaline Phosphatase 147 U/L (38-126); Blood Urea Nitrogen 12 mg/dl (7-17); Calcium 11.9 mg/dl (8.4-10.2); Carbon Dioxide 27 mmol/L (22-30); Chloride 105 mmol/L (98-107); Estimated Creatinine Clearance 71 ml/min; Glucose 75 mg/dl (70-99); Potassium 4.7 mmol/L (3.5-5.1); Sodium 140 mmol/L (135-145); Total Bilirubin 0.9 mg/dl (0.2-1.3); Total Protein 6.7 g/dl (6.3-8.2); eGFR > 60.00
[2024-03-22 05:08] LABS: Vitamin D, 25-OH*** 21.3 ng/mL (30-80)
[2024-03-22 05:17] LABS: Procalcitonin 0.06 ng/ml (0.0-0.25)
[2024-03-22] MEDS: ZESTRIL 40 MG PO (06:50)
--- NOTE | 2024-03-22 09:44 | W.PN.HOSP.TC ---
Today's Communication/Plan
-
IV hydration for hypercalcemia
Consider pamidronate
Follow calcium level including ionized.
Continue current analgesic regimen including opiates monitoring mental status.
Hold Seroquel for now.
Empiric antibiotics pending urine cultures
Physical therapy assessment when possible.
Assessment / Plan
Assessment / Plan
Impression:
Altered mental status secondary to toxic metabolic encephalopathy.
Hypercalcemia secondary to multiple myeloma
Dysuria/urgency with concern for UTI.
Conditions prior to admission:
Refractory multiple myeloma since 2011
� Status post stem cell transplant 2015
Chronic pancytopenia
Chronic malignant pain requiring opiates.
Multiple compression fractures status post kyphoplasty T12, L2, L3 03/17.
Essential hypertension
Dyslipidemia
Anxiety.
Former smoker
Plan:
Altered mental status secondary to toxic metabolic encephalopathy
Patient presents with reported hallucinations.
Currently lethargic, wakes up to conversation and oriented to name only
Exam with no focal findings
CT scan of the head with no acute abnormalities noted with for multiple cranial lytic lesions.
This is likely combination of narcotics as well as hypercalcemia.
Continue current medication regimen with OxyContin/oxycodone. Monitor closely.
Ordered Seroquel as needed on admission, will hold for now.
Treat hypercalcemia
Acute on chronic hypercalcemia secondary to malignancy/multiple myeloma.
PTH pending.
EKG with no acute changes
IV hydration with isotonic solution.
Check ionized calcium.
Consider pamidronate
Heme-onc consultation.
Reported dysuria.
Afebrile.
Normal white count (patient with chronic pancytopenia)
Empiric antibiotics/ceftriaxone pending urine cultures
Monitor for retention
Chronic pain
Presented with chest pain most likely due to chest wall strain.
CT chest negative for pulmonary embolism. No parenchymal abnormalities
COVID/flu negative.
Chronic back pain with recent kyphoplasty
Lumbar spine x-ray: Chronic compression deformities T10/T11\\, Recent kyphoplasty at T12/L2/L3
Continue preadmission regimen with MS Contin and oxycodone
Continue Tylenol
Continue Lidoderm patch
#HTN�benign
134/69
-Continue lisinopril 40 mg daily
#HLD
-Continue atorvastatin 10 mg at bedtime
#Hx nasal MRSA January 2024
#Anxiety
-Continue Cymbalta
#Former smoker
DVT prophylaxis
SCDs plt 91
DNR per patient did compared to recent admission January 2024 was also listed as DNR
Anticipated Discharge: 24 - 48 hours
Subjective/Interval History
-
Date of Service: March 22, 2024
Objective Data
-
Labs:
Laboratory Results
03/22/24
04:15
WBC 4.3 L
Hgb 9.8 L
Hct 29.8 L
Plt Count 77 L
Sodium 140
Potassium 4.7
Chloride 105
Carbon Dioxide 27
BUN 12
Creatinine 0.5 L
Glucose 75
Calcium 11.9 H
Total Bilirubin 0.9
AST 38 H
ALT 21
Alkaline Phosphatase 147 H
Vital Signs:
Vital Signs
Temp Pulse Resp BP Pulse Ox
97.5 F 93 18 141/78 99
03/22/24 07:50 03/22/24 08:00 03/22/24 08:00 03/22/24 08:00 03/22/24 08:00
I&O
03/21/24 03/22/24 03/23/24
06:59 06:59 06:59
Intake Total 240 / 240
Balance 240 / 240
Physical Exam
-
General: Well Developed and No Apparent Distress
HEENT: Normocephalic, Atraumatic and Moist Mucous Membranes
Respiratory: Clear to Auscultation
Cardiac: Regular Rhythm and S1/S2; Negative Murmur, Rub or Gallop
GI: Soft, Nontender, Nondistended and Normal Bowel Sounds; Negative Organomegaly
Rectal: Deferred by Provider
Musculoskeletal: No Clubbing, No Cyanosis and No Edema
Skin: Negative Rash
Neuro: Awake, Alert, Oriented (Name only) and Nonfocal/Grossly Intact
[2024-03-22 09:50] LABS: Intact PTH 18.9 pg/ml (13.6-85.8)
[2024-03-22] MEDS: MS CONTIN (EXTENDED RELEASE) 30 MG PO ×2 (10:20→20:23)
[2024-03-22] MEDS: CYMBALTA DELAYED RELEASE 30 MG PO (10:20)
[2024-03-22] MEDS: ZYRTEC 5 MG PO (10:20)
[2024-03-22] MEDS: FOLVITE 1 MG PO (10:20)
[2024-03-22] MEDS: SENOKOT 8.59999999999999964 MG PO ×2 (10:20→20:23)
[2024-03-22] MEDS: VITAMIN B-6 100 MG PO (10:20)
[2024-03-22] MEDS: TYLENOL 1000 MG PO ×2 (10:20→17:10)
[2024-03-22] MEDS: REFRESH EYE DROPS (PF) 1 DROPS BOTH EYES ×3 (10:20→21:51)
[2024-03-22] MEDS: LIDOCAINE 4% PATCH 1 PATCH TOPICAL (10:21)
[2024-03-22] MEDS: MIRALAX 17 GRAMS PO ×2 (10:21→20:23)
--- NOTE | 2024-03-22 11:05 | CON.ONC ---
Impression
Impression
Stable cytopenias secondary to multiple myeloma stable since January 2024, patient is not neutropenic
Hypercalcemia secondary to multiple myeloma
TME secondary to hypercalcemia, possible infection, and opioids
Frequent falls
Plan
Plan
Multiple myeloma, treatment-refractory, now on best supportive care/palliative care
Daily CBC
Transfuse for hemoglobin less than 7 or as needed for symptomatic anemia
avoid nsaids, antiplatelet, anticoagulation if platelets <50,000
Pain management
Consider pamidronate
Follow urine and blood cultures
I will call primary oncologist for update in care
Patient History
History of Present Illness
69yo F with refractory multiple myeloma status post stem cell transplant in 2016 who underwent a vertebroplasty 03/02/2024 presented to ER 03/21 due to low back and chest pain. She reports that she had a mechanical fall 5 days ago at which time she
fell on her buttocks. She takes chronic opiates for chronic low back pain related to compression fractures, likely from her multiple myeloma. She also reports dysuria for approximately 1 week and low-grade temp to 99.8F. Medical oncology is
consulted due to hypercalcemia secondary to her multiple myeloma. She has been admitted for IV hydration, pain management, evaluation for UTI, and monitoring of altered mental status. Patient's calcium has improved from 12.1-11.9 with IV fluids.
Respiratory swab was negative for influenza. Urine and blood cultures are pending.
CT chest showed no evidence of pulmonary emboli, atelectasis, diminished stature of T6 and T7 appear to have progressed , and subtle deformity of the central manubrium sternum possibly of fracture. CT head showed no acute intracranial
abnormalities, mild to moderate diffuse cortical and cerebellar atrophy, extensive lytic disease throughout the skull, and right frontal miguel hole.
Clinically she denies chills, cough, shortness of breath, nausea, vomiting, diarrhea, abdominal pain. She is a poor historian, oriented to self only, however, she does tell me that she is not on active myeloma treatment, has no history of
osteonecrosis of the jaw, and no dental issues.
Past-Medical/Surgical History
PMH
Refractory Multiple myeloma status post stem cell transplant 06/2016, multiple regimen, last tx 08/05/23 Teclistamab, now palliative care. Follows at [facility]
Hypogammaglobulinemia on IVIg
HTN
Dyslipidemia
Pseudogout
Shingles
Drug-induced neuropathy
Surgical History
Rhinoplasty
Bladder prolapse repair
Social History
Tobacco: Former Smoker
Alcohol: None
Drug: None
Family History
Family History: Not Pertinent
Patient Medication
�Medication �Instructions �Recorded �Confirmed �Last Taken �Type
atorvastatin 10 mg tablet 10 mg PO HS High Cholesterol 09/25/23 03/21/24 09/23/23 History
lisinopril 40 mg tablet 40 mg PO DAILY Blood Pressure 09/25/23 03/21/24 09/23/23 History
duloxetine 30 mg capsule,delayed 30 mg PO DAILY Mental 02/17/24 03/21/24 Unknown History
release Health/Anxiety
folic acid 1 mg tablet 1 mg PO DAILY Supplement 02/17/24 03/21/24 Unknown History
naloxone 4 mg/actuation nasal spray 4 mg intranasal Q3M PRN opiod 02/17/24 03/21/24 Unknown History
overdose
pyridoxine (vitamin B6) 100 mg 100 mg PO DAILY Supplement 02/17/24 03/21/24 Unknown History
tablet
acetaminophen 500 mg tablet 1,000 mg (2 x 500 mg) PO Q8H #90 02/28/24 03/21/24 Unknown Rx
(Tylenol Extra Strength) tabs
cetirizine 10 mg tablet 5 mg (1/2 x 10 mg) PO DAILY #30 02/28/24 03/21/24 Unknown Rx
tabs
lidocaine 4 % topical patch 1 patch topical DAILY #30 ea 02/28/24 03/21/24 Unknown Rx
polyethylene glycol 3350 17 gram 17 g PO BID #30 ea 02/28/24 03/21/24 Unknown Rx
oral powder packet (HealthyLax)
sennosides 8.6 mg tablet (Senna 8.6 mg PO BID #60 tabs 02/28/24 03/21/24 Unknown Rx
Laxative)
bisacodyl 10 mg rectal suppository 10 mg MO Q8HPRN PRN if no bm aftr 03/21/24 03/21/24 Unknown History
(Dulcolax (bisacodyl)) mom
magnesium hydroxide 400 mg/5 mL 2,400 mg PO [id number] PRN if no bm 03/21/24 03/21/24 Unknown History
oral suspension (Milk of Magnesia) by 3rd day
morphine 30 mg tablet,extended 30 mg PO Q12H 03/21/24 03/21/24 Unknown History
release (MS Contin)
oxycodone 10 mg tablet 15 mg PO Q4HPRN PRN severe pain 03/21/24 03/21/24 Unknown History
polyvinyl alcohol-povidone (PF) 1 drp BOTH EYES QID 03/21/24 03/21/24 Unknown History
1.4 %-0.6 % eye drops in a
dropperette (Refresh Classic (PF))
Active Medications
Generic Name Dose Route Start Last Admin
Trade Name Freq PRN Reason Stop Dose Admin
Acetaminophen 1,000 mg 03/22/24 08:00 03/22/24 10:20
Acetaminophen 500 Mg Tablet PO 04/19/24 07:59 1,000 mg
Q8 CODI Administration
Artificial Tears 1 drops 03/22/24 08:00 03/22/24 10:20
Artificial Tears Pf (Refresh) 10 Drop Droperette BOTH EYES 04/19/24 07:59 1 drops
QID CODI Administration
Atorvastatin Calcium 10 mg 03/22/24 22:00
Atorvastatin (Lipitor) 10 Mg Tablet PO 04/19/24 21:59
HS CODI
Bisacodyl 10 mg 03/22/24 02:19
Bisacodyl 10 Mg Rectal Suppository RECTAL 04/19/24 02:18
[id number] PRN
constipation
Bisacodyl 10 mg 03/22/24 02:19
Bisacodyl 10 Mg Rectal Suppository RECTAL 04/19/24 02:18
Q8HPRN PRN
if no bm aftr mom
Ceftriaxone Sodium 1,000 mg 03/23/24 00:00
Ceftriaxone 1000 Mg / 10 Ml Vial IV
Q24H CODI
Cetirizine HCl 5 mg 03/22/24 08:00 03/22/24 10:20
Cetirizine Hcl 10 Mg Tablet PO 04/19/24 07:59 5 mg
DAILY CODI Administration
Duloxetine HCl 30 mg 03/22/24 08:00 03/22/24 10:20
Duloxetine Delayed Release 30 Mg Capsule PO 04/19/24 07:59 30 mg
DAILY CODI Administration
Folic Acid 1 mg 03/22/24 08:00 03/22/24 10:20
Folic Acid 1 Mg Tablet PO 04/19/24 07:59 1 mg
DAILY CODI Administration
Sodium Chloride 1,000 mls @ 100 mls/hr 03/22/24 02:19 03/22/24 03:21
Nss IV 1,000 mls
.Q10H CODI Administration
Lidocaine 1 patch 03/22/24 08:00 03/22/24 10:21
Lidocaine 4% Topical Patch TOPICAL 04/19/24 07:59 1 patch
DAILY CODI Administration
Lisinopril 40 mg 03/22/24 08:00 03/22/24 06:50
Lisinopril 20 Mg Tablet PO 04/19/24 07:59 40 mg
DAILY CODI Administration
Magnesium Hydroxide 30 ml 03/22/24 02:19
Milk Of Magnesia 30 Ml Cup PO 04/19/24 02:18
[id number] PRN
if no bm by 3rd day
Morphine Sulfate 30 mg 03/22/24 08:00 03/22/24 10:20
Morphine 15 Mg Extended Release Tablet PO 04/05/24 07:59 30 mg
Q12 CODI Administration
Naloxone HCl 0.04 mg 03/22/24 11:00
Naloxone (0.4 Mg/Ml) 1 Ml Injection IV 04/19/24 10:59
Q2MPRN PRN
RR </= 10/min / Pasero scale=4
Oxycodone HCl 15 mg 03/22/24 02:19
Oxycodone 15 Mg Regular Release Tablet PO 04/05/24 02:18
Q4HPRN PRN
severe pain
Polyethylene Glycol 17 grams 03/22/24 02:19
Polyethylene Glycol Powder 17 Grams Packet PO 04/19/24 02:18
DAILYPRN PRN
constipation
Polyethylene Glycol 17 grams 03/22/24 08:00 03/22/24 10:21
Polyethylene Glycol Powder 17 Grams Packet PO 04/19/24 07:59 17 grams
BID CODI Administration
Pyridoxine HCl 100 mg 03/22/24 08:00 03/22/24 10:20
Pyridoxine 50 Mg Tablet PO 04/19/24 07:59 100 mg
DAILY CODI Administration
Senna/Docusate Sodium 1 tablet 03/22/24 02:19
Docusate W/Senna (Letha-Colace) Tablet PO 04/19/24 02:18
BIDPRN PRN
constipation
Sennosides 8.6 mg 03/22/24 08:00 03/22/24 10:20
Sennosides (Senokot) 8.6 Mg Tablet PO 04/19/24 07:59 8.6 mg
BID CODI Administration
Sodium Chloride 0 flush 03/21/24 23:00
Sodium Chloride 0.9% (Flush) Syringe IV 04/18/24 22:59
PER PROTOCOL CODI
Sodium Chloride 0.9 ml 03/22/24 11:00
Sodium Chloride 0.9% (Preservative Free) 10 Ml Vial IV 04/19/24 10:59
Q2MPRN PRN
naloxone dilution
Sterile Water 10 ml 03/22/24 00:00 03/22/24 00:18
Sterile Water For Injection 10 Ml Vial IV 04/19/24 00:00 10 ml
Q24H CODI Administration
Review of Systems
-
Review of systems notable for HPI, otherwise negative
Physical Exam
-
Awake, lethargic, poor historian, Non-toxic appearing
General: Appears Chronically Ill
HEENT: Moist Mucous Membranes; Negative Jaundice
Cardiology: Normal Sinus Rhythm, S1 and S2
Pulmonary: Clear
GI: Soft
Extremities: No edema
Neurology: Lethargic, speech clear, oriented to self only
Skin: Warm and Dry
Hematologic / Lymphatic: No Lymphadenopathy
Psych: Calm
Labs
Lab Results
WBC 4.3 10^3/uL (4.8-10.8) L 03/22/24 04:15
RBC 2.99 10^6/uL (4.20-5.40) L 03/22/24 04:15
Hgb 9.8 g/dL (12.0-16.0) L 03/22/24 04:15
Hct 29.8 % (37.0-47.0) L 03/22/24 04:15
MCV 99.7 fL (81.0-99.0) H 03/22/24 04:15
MCH 32.8 pg (27.0-31.0) H 03/22/24 04:15
MCHC 32.9 g/dL (33.0-37.0) L 03/22/24 04:15
RDW 14.4 % (11.5-14.5) 03/22/24 04:15
Plt Count 77 10^3/uL (130-400) L 03/22/24 04:15
MPV 12.2 fL (7.4-10.4) H 03/22/24 04:15
Abs Immat Gran (auto) 0.0 10^3/uL (0-0.05) 03/22/24 04:15
Absolute Neuts (auto) 3.4 10^3/uL (1.4-6.5) 03/22/24 04:15
Absolute Lymphs (auto) 0.3 10^3/uL (1.2-3.4) L 03/22/24 04:15
Absolute Monos (auto) 0.5 10^3/uL (0.1-0.6) 03/22/24 04:15
Absolute Eos (auto) 0.1 10^3/uL (0-0.7) 03/22/24 04:15
Absolute Basos (auto) 0.0 10^3/uL (0-0.2) 03/22/24 04:15
Immature Gran % 0.2 % (0-0.5) 03/22/24 04:15
Neutrophils % 79.6 % (42.2-75.2) H 03/22/24 04:15
Lymphocytes % 7.7 % (20.5-51.1) L 03/22/24 04:15
Monocytes % 11.1 % (1.7-9.3) H 03/22/24 04:15
Eosinophils % 1.2 % (0-6) 03/22/24 04:15
Basophils % 0.2 % (0-2) 03/22/24 04:15
Creatinine 0.5 mg/dL (0.6-1.0) L 03/22/24 04:15
Vital Signs
Vital Signs
Temp Pulse Resp BP Pulse Ox
97.5 F 101 21 176/89 99
03/22/24 07:50 03/22/24 10:04 03/22/24 10:04 03/22/24 10:04 03/22/24 08:56
[2024-03-22] MEDS: REFRESH EYE DROPS (PF) BOTH EYES (13:10)
--- NOTE | 2024-03-22 13:43 | CM ---
Patient from [facility] with Hx multiple myeloma, vertebroplasty 03/02/24, mechanical fall with Dx AMS due to TME, Hypercalcemia, concern for UTI. O2 2L. Receiving IVF, IV Abx. PT/OT recommend skilled rehab.
Met with patient who was sleeping.
Spoke with patient's sister WICHO Syed;
the patient had resided at [facility] for about 8 days and was then admitted to recently, discharged to [facility] for rehab and transitioned to their LTC Unit last Wednesday. She is paying privately for LTC.
On Wednesday the patient fell. She had been mostly w/c bound and ambulating a few steps.
Sister reports patient has been alert, confused.
The patient has 2 sons and other family and Yahaira provides updates to them about patient's status.
Yahaira would like the patient to return to [facility] at d/c. She was made aware that PT/OT recommended skilled rehab.
Phone call to Cynthia Baxter Director [facility]; left message requesting callback.
Plan return to [facility] at d/c.
--- NOTE | 2024-03-22 15:31 | PTCARENOTE ---
Pt has remained lethargic, minimally arousable, oriented only to self this shift. VS remain stable, slightly hypertensive (MD aware) and sat 98% on 2L. Updated sister this am at bedside. Plan discussed with Dr. Ferraro. Will continue to monitor.
--- NOTE | 2024-03-22 20:00 | PTCARENOTE ---
Resumed care of pt laying in bed sleeping. Pt arousable to voice, AAOx2 forgetful to time. Hr in the 80's in NSR on the monitor. POX 100% on 2 LO2 NC. Lungs dec with fine b/l base crackles. Occ dry cough. Hypo bowel, round abd. Bowel regimen in
place. Pt inc of urine, pure wick in place. Pale skin. Palpable peripheral pulses present. Left AC int infusing NSS @100ml/hr as ordered. Pt repositioned in bed per comfort. Offers no complaints at this time. Bed alarm in place. Will continue to
monitor.
--- NOTE | 2024-03-22 21:01 | PTCARENOTE ---
Pt stating she needs to use bathroom. Pt states she normally walks with walker. DId not want to use bedpan. Pt assisted x2 to BSC. Pt had large soft BM and voided. Pt settled back to bed per comfort. Pt reports back pain which is chronic. No other
issues to report at this time. Call cary in reach. bed alarm for pt safety. Will continue to monitor.
[2024-03-22] MEDS: LIPITOR 10 MG PO (21:51)
[2024-03-23] VITALS (10 sets, daily range): BP systolic 121–194; BP diastolic 60–89; BMI 21.3
[2024-03-23] MEDS: TYLENOL 1000 MG PO ×4 (00:04→23:09)
[2024-03-23] MEDS: STERILE WATER FOR INJECTION 10 ML IV (00:05)
[2024-03-23] MEDS: ROCEPHIN 1000 MG IV (00:05)
--- NOTE | 2024-03-23 00:17 | PTCARENOTE ---
Pt received from previous RN. Pt more alter this evening, alert to self, place, time, needs reorienting to situation. Pt on 2L NC sats 92%, occasional dry cough. Receiving NS @ 100/hr. Via left AC IV. Pt maintained Q2 turn. Call cary in reach.
[2024-03-23 05:31] LABS: Ionized Calcium 1.37 mMOL/L (1.15-1.33)
[2024-03-23 05:32] LABS: % Eosinophils 2.7 % (0-6); % Immature Granulocytes 0.3 % (0-0.5); % Lymphocytes 9.4 % (20.5-51.1); % Monocytes 11.5 % (1.7-9.3); % Neutrophils 76.1 % (42.2-75.2); Absolute Eosinophils 0.1 10^3/uL (0-0.7); Absolute Lymphocytes 0.3 10^3/uL (1.2-3.4); Absolute Monocytes 0.4 10^3/uL (0.1-0.6); Absolute Neutrophils 2.5 10^3/uL (1.4-6.5); Hematocrit 28.3 % (37.0-47.0); Hemoglobin 9.3 g/dL (12.0-16.0); Mean Corp Hgb Conc. 32.9 g/dL (33.0-37.0); Mean Corpuscular Hgb 32.7 pg (27.0-31.0); Mean Corpuscular Volume 99.6 fL (81.0-99.0); Mean Platelet Volume 11.7 fL (7.4-10.4); Nucleated Red Blood Cells % 0 %; Platelet Count 72 10^3/uL (130-400); Red Blood Cell Count 2.84 10^6/uL (4.20-5.40); Red Cell Dist. Width 14.3 % (11.5-14.5); White Blood Cell Count 3.3 10^3/uL (4.8-10.8)
[2024-03-23 05:59] LABS: ALT (SGPT) 17 U/L (0-35); AST (SGOT) 29 U/L (14-36); Albumin 2.8 g/dl (3.5-5.0); Alkaline Phosphatase 132 U/L (38-126); Blood Urea Nitrogen 9 mg/dl (7-17); Calcium 10.3 mg/dl (8.4-10.2); Carbon Dioxide 26 mmol/L (22-30); Chloride 109 mmol/L (98-107); Estimated Creatinine Clearance 71 ml/min; Glucose 66 mg/dl (70-99); Potassium 3.9 mmol/L (3.5-5.1); Sodium 141 mmol/L (135-145); Total Bilirubin 0.4 mg/dl (0.2-1.3); Total Protein 5.6 g/dl (6.3-8.2); eGFR > 60.00
[2024-03-23 06:26] LABS: Glucose - Point of Care 67 mg/dl (70-99)
--- NOTE | 2024-03-23 06:40 | PTCARENOTE ---
Am lab glucose 66. finger stick rechecked 67. gave 4oz juice. PAINT SPRAY TENDER notified. rechecked in 15. reading of 73. Pt asymptomatic .
[2024-03-23 06:49] LABS: Glucose - Point of Care 73 mg/dl (70-99)
--- NOTE | 2024-03-23 08:34 | PTCARENOTE ---
Pt rec'd from vacuum technician RN, much more awake and alert, alerted staff for need to get oob to use commode for soft brown BM, ordered breakfast, now eating sitting up in chair. Pt agreeable to use bsc for toileting, purewick removed. Chair alarm
armed for safety. VAT RN contacted to replace IV as left AC site occluding and pump continuously alarming. Safe environment maintained.
--- NOTE | 2024-03-23 08:38 | PTCARENOTE ---
VS pulled over from [id number] previous shift; cannot verify accuracy.
[2024-03-23] MEDS: LIDOCAINE 4% PATCH 1 PATCH TOPICAL (09:29)
[2024-03-23] MEDS: CYMBALTA DELAYED RELEASE 30 MG PO (09:31)
[2024-03-23] MEDS: MS CONTIN (EXTENDED RELEASE) 30 MG PO ×2 (09:31→21:10)
[2024-03-23] MEDS: REFRESH EYE DROPS (PF) 1 DROPS BOTH EYES ×4 (09:31→21:09)
[2024-03-23] MEDS: ZESTRIL 40 MG PO (09:31)
[2024-03-23] MEDS: VITAMIN B-6 100 MG PO (09:31)
[2024-03-23] MEDS: FOLVITE 1 MG PO (09:32)
[2024-03-23] MEDS: ZYRTEC 5 MG PO (09:32)
[2024-03-23] MEDS: SENOKOT PO ×2 (09:33→21:10)
[2024-03-23] MEDS: MIRALAX PO ×2 (09:35→21:11)
[2024-03-23] MEDS: NSS 1000 IV (09:43)
--- NOTE | 2024-03-23 10:02 | PTCARENOTE ---
pt had 3rd large soft brwn BM on bedside commode. Stool softeners not given this am.
--- NOTE | 2024-03-23 11:40 | W.PN.ONC ---
Today's Communication / Plan
-
Multiple myeloma, treatment-refractory, now on best supportive care/palliative care
Daily CBC
Transfuse for hemoglobin less than 7 or as needed for symptomatic anemia
Avoid nsaids, antiplatelet, anticoagulation if platelets <50,000
Pain management
Consider pamidronate-given her significant improvement in mental status not sure necessary with a calcium of 10.3
Follow urine and blood cultures
Impression
Impression
Stable cytopenias secondary to multiple myeloma stable since January 2024, patient is not neutropenic
Hypercalcemia secondary to multiple myeloma
TME secondary to hypercalcemia, possible infection, and opioids
Frequent falls
Subjective/Objective
Subjective/Objective
According to nursing patient much more alert sitting in a chair eating breakfast
Vital Signs:
Vital Signs
Temp Pulse Resp BP Pulse Ox
98.2 F 92 16 151/80 100
03/23/24 11:23 03/23/24 09:31 03/23/24 08:00 03/23/24 09:31 03/23/24 08:37
Physical Exam
Awake and appropriate
HEENT: Moist Mucous Membranes; Negative Jaundice
Cardiology: Normal Sinus Rhythm, S1 and S2
Pulmonary: Clear
GI: Soft
Extremities: No edema
Neurology: Awake appropriate and nonfocal
Psych: Calm
Lab Results:
Laboratory Data
WBC 3.3 10^3/uL (4.8-10.8) L 03/23/24 05:23
Hgb 9.3 g/dL (12.0-16.0) L 03/23/24 05:23
Plt Count 72 10^3/uL (130-400) L 03/23/24 05:23
eGFR > 60.00 03/23/24 05:23
--- NOTE | 2024-03-23 15:27 | W.PN.HOSP.TC ---
Today's Communication/Plan
-
Wean off IV fluids
Follow calcium level.
Follow mental status
Stop antibiotics
Physical therapy assessment
Disposition likely rehab, also further goals of care discussion including palliative approach with hospice consideration.
Assessment / Plan
Assessment / Plan
Impression:
Altered mental status secondary to toxic metabolic encephalopathy.
Hypercalcemia secondary to multiple myeloma
Dysuria/urgency with concern for UTI.
Conditions prior to admission:
Refractory multiple myeloma since 2011
� Status post stem cell transplant 2015
Chronic pancytopenia
Chronic malignant pain requiring opiates.
Multiple compression fractures status post kyphoplasty T12, L2, L3 03/17.
Essential hypertension
Dyslipidemia
Anxiety.
Former smoker
Plan:
Altered mental status secondary to toxic metabolic encephalopathy
Patient presents with reported hallucinations.
Currently lethargic, wakes up to conversation and oriented to name only
Exam with no focal findings
CT scan of the head with no acute abnormalities noted with for multiple cranial lytic lesions.
This is likely combination of narcotics as well as hypercalcemia.
Mental status improved today on 03/23 and close to baseline
Continue current medication regimen with OxyContin/oxycodone. Monitor closely.
Treat hypercalcemia
Acute on chronic hypercalcemia secondary to malignancy/multiple myeloma.
PTH pending.
EKG with no acute changes
IV hydration with isotonic solution.
Improving with hydration
Consider pamidronate.
Oncology input appreciated with suggestion of palliative approach and hospice consideration.
Reported dysuria.
Afebrile.
Normal white count (patient with chronic pancytopenia)
Blood and urine cultures negative to date
Discontinue antibiotics on 03/23
Chronic pain
Presented with chest pain most likely due to chest wall strain.
CT chest negative for pulmonary embolism. No parenchymal abnormalities
COVID/flu negative.
Chronic back pain with recent kyphoplasty
Lumbar spine x-ray: Chronic compression deformities T10/T11\\, Recent kyphoplasty at T12/L2/L3
Continue preadmission regimen with MS Contin and oxycodone
Continue Tylenol
Continue Lidoderm patch
#HTN�benign
134/69
-Continue lisinopril 40 mg daily
#HLD
-Continue atorvastatin 10 mg at bedtime
#Hx nasal MRSA January 2024
#Anxiety
-Continue Cymbalta
#Former smoker
DVT prophylaxis
SCDs plt 91
DNR per patient did compared to recent admission January 2024 was also listed as DNR
Anticipated Discharge: 24 - 48 hours
Subjective/Interval History
-
Date of Service: March 23, 2024
Objective Data
-
Labs:
Laboratory Results
03/23/24
05:23
WBC 3.3 L
Hgb 9.3 L
Hct 28.3 L
Plt Count 72 L
Sodium 141
Potassium 3.9
Chloride 109 H
Carbon Dioxide 26
BUN 9
Creatinine 0.5 L
Glucose 66 L
Calcium 10.3 H
Total Bilirubin 0.4
AST 29
ALT 17
Alkaline Phosphatase 132 H
Vital Signs:
Vital Signs
Temp Pulse Resp BP Pulse Ox
98.2 F 89 16 151/80 93
03/23/24 11:23 03/23/24 12:00 03/23/24 12:00 03/23/24 12:00 03/23/24 12:00
I&O
03/22/24 03/23/24 03/24/24
06:59 06:59 06:59
Intake Total 240 / 240 1320 / 1320 1040 / 1040
Output Total 400 / 400
Balance 240 / 240 920 / 920 1040 / 1040
Physical Exam
-
General: Well Developed and No Apparent Distress
HEENT: Normocephalic, Atraumatic and Moist Mucous Membranes
Respiratory: Clear to Auscultation
Cardiac: Regular Rhythm and S1/S2; Negative Murmur, Rub or Gallop
GI: Soft, Nontender, Nondistended and Normal Bowel Sounds; Negative Organomegaly
Rectal: Deferred by Provider
Musculoskeletal: No Clubbing, No Cyanosis and No Edema
Skin: Negative Rash
Neuro: Awake, Alert, Oriented and Nonfocal/Grossly Intact
[2024-03-23 19:34] LABS: Vitamin D 1,25 Dihydroxy 18.8 pg/mL (19.9-79.3)
--- NOTE | 2024-03-23 19:50 | PTCARENOTE ---
Assumed care of Pt from Day RN. Pt Q4 neuro checks. Pt had no complaints at this time, Call cary with in reach. Assessment care and vitals as charted.
[2024-03-23] MEDS: LIPITOR 10 MG PO (21:10)
[2024-03-24] VITALS (8 sets, daily range): BP systolic 140–163; BP diastolic 74–85; PULSE 91; O2SAT 93
--- NOTE | 2024-03-24 03:50 | PTCARENOTE ---
Report given to 4W RN. Pt informed and cooperative with transfer.
--- NOTE | 2024-03-24 04:09 | PTCARENOTE ---
Pt transferred from IMU. Pt oriented to unit, call cary within reach, bed in lowest positon. VSS, Bed alarm applied. Will continue with current plan.
[2024-03-24 07:33] LABS: % Basophils 0.4 % (0-2); % Eosinophils 3.6 % (0-6); % Immature Granulocytes 0.4 % (0-0.5); % Lymphocytes 7.6 % (20.5-51.1); % Monocytes 12.4 % (1.7-9.3); % Neutrophils 75.6 % (42.2-75.2); Absolute Eosinophils 0.1 10^3/uL (0-0.7); Absolute Lymphocytes 0.2 10^3/uL (1.2-3.4); Absolute Monocytes 0.3 10^3/uL (0.1-0.6); Absolute Neutrophils 2.1 10^3/uL (1.4-6.5); Hematocrit 29.2 % (37.0-47.0); Hemoglobin 9.5 g/dL (12.0-16.0); Mean Corp Hgb Conc. 32.5 g/dL (33.0-37.0); Mean Corpuscular Hgb 32.3 pg (27.0-31.0); Mean Corpuscular Volume 99.3 fL (81.0-99.0); Nucleated Red Blood Cells % 0 %; Red Blood Cell Count 2.94 10^6/uL (4.20-5.40); Red Cell Dist. Width 14.5 % (11.5-14.5); White Blood Cell Count 2.8 10^3/uL (4.8-10.8)
[2024-03-24] MEDS: TYLENOL 1000 MG PO (07:40)
[2024-03-24] MEDS: SENOKOT PO (07:40)
[2024-03-24] MEDS: CYMBALTA DELAYED RELEASE 30 MG PO (07:40)
[2024-03-24] MEDS: LIDOCAINE 4% PATCH 1 PATCH TOPICAL (07:40)
[2024-03-24] MEDS: ZYRTEC 5 MG PO (07:40)
[2024-03-24] MEDS: MS CONTIN (EXTENDED RELEASE) 30 MG PO (07:42)
[2024-03-24] MEDS: ZESTRIL 40 MG PO (07:42)
[2024-03-24] MEDS: FOLVITE 1 MG PO (07:42)
[2024-03-24] MEDS: VITAMIN B-6 100 MG PO (07:42)
[2024-03-24] MEDS: REFRESH EYE DROPS (PF) 1 DROPS BOTH EYES ×3 (07:43→16:19)
[2024-03-24] MEDS: MIRALAX PO (07:43)
[2024-03-24] MEDS: TYLENOL PO (07:47)
[2024-03-24 07:54] LABS: Mean Platelet Volume 12.3 fL (7.4-10.4); Platelet Count 74 10^3/uL (130-400)
[2024-03-24 08:59] LABS: ALT (SGPT) 16 U/L (0-35); AST (SGOT) 26 U/L (14-36); Albumin 3.1 g/dl (3.5-5.0); Alkaline Phosphatase 142 U/L (38-126); Blood Urea Nitrogen 8 mg/dl (7-17); Calcium 10.8 mg/dl (8.4-10.2); Carbon Dioxide 28 mmol/L (22-30); Chloride 108 mmol/L (98-107); Estimated Creatinine Clearance 71 ml/min; Glucose 95 mg/dl (70-99); Potassium 3.5 mmol/L (3.5-5.1); Sodium 142 mmol/L (135-145); Total Bilirubin 0.4 mg/dl (0.2-1.3); eGFR > 60.00
--- NOTE | 2024-03-24 10:31 | CM ---
Addendum entered by Lily Joyce 03/24/24 15:33:
Transport time 5:45 pm, patients sister updated.
Patient updated.
Per [facility] patient going to room A 111, to call report [phone].
Addendum entered by Lily Joyce 03/24/24 14:52:
TC back from Vee from [facility], they can accept patient today.
Medicare, no auth needed.
Ambulance transport forms completed. Await transport time.
Plan: transfer to [facility] today for skilled rehab and transition to hospice when ready.
Facility will call for report

Addendum entered by Lily Joyce 03/24/24 14:18:
Patient seen bedside.
answering questions appropriately.
Patient agreeable to skilled rehab.
await TCB from [facility].
Addendum entered by Lily Joyce 03/24/24 11:56:
Spoke with patients sister Yahaira, she is interested in patient going back to [facility] under skilled care and transitioning to Hospice when she is ready.
Spoke with Vee at [facility], Patient was 8in assisted living, not LTC.
Vee does have a bed available today in the skilled unit.
Vee will have the social service technician work with patients sister to assist with transitioning to hospice, agency options and costs.
Original Note:
Left VM for Vee in admissions at [facility].
Await TCB.
PT recommending skilled rehab.
[2024-03-24 10:52] LABS: Ionized Calcium 1.27 mMOL/L (1.15-1.33)
--- NOTE | 2024-03-24 14:03 | W.PN.HOSP.TC ---
Today's Communication/Plan
-
Mental status back to baseline.
Hypercalcemia improved with hydration and had not required pamidronate yet. Xgeva consideration discussed with oncology.
Discharge planing back to group home facility with possible transition to hospice.
Patient's POA Sister updated over the phone.
Assessment / Plan
Assessment / Plan
Impression:
Altered mental status secondary to toxic metabolic encephalopathy.
Hypercalcemia secondary to multiple myeloma
Dysuria/urgency with concern for UTI.
Conditions prior to admission:
Refractory multiple myeloma since 2011
� Status post stem cell transplant 2015
Chronic pancytopenia
Chronic malignant pain requiring opiates.
Multiple compression fractures status post kyphoplasty T12, L2, L3 03/17.
Essential hypertension
Dyslipidemia
Anxiety.
Former smoker
Plan:
Altered mental status secondary to toxic metabolic encephalopathy
Patient presents with reported hallucinations.
Currently lethargic, wakes up to conversation and oriented to name only
Exam with no focal findings
CT scan of the head with no acute abnormalities noted with for multiple cranial lytic lesions.
This is likely combination of narcotics as well as hypercalcemia.
Mental status improved today on 03/23 and close to baseline
Continue current medication regimen with OxyContin/oxycodone. Monitor closely.
Treat hypercalcemia
Acute on chronic hypercalcemia secondary to malignancy/multiple myeloma.
PTH pending.
EKG with no acute changes
IV hydration with isotonic solution.
Improving with hydration
Consider pamidronate.
Oncology input appreciated with suggestion of palliative approach and hospice consideration.
Reported dysuria.
Afebrile.
Normal white count (patient with chronic pancytopenia)
Blood and urine cultures negative to date
Discontinue antibiotics on 03/23
Chronic pain
Presented with chest pain most likely due to chest wall strain.
CT chest negative for pulmonary embolism. No parenchymal abnormalities
COVID/flu negative.
Chronic back pain with recent kyphoplasty
Lumbar spine x-ray: Chronic compression deformities T10/T11\\, Recent kyphoplasty at T12/L2/L3
Continue preadmission regimen with MS Contin and oxycodone
Continue Tylenol
Continue Lidoderm patch
#HTN�benign
134/69
-Continue lisinopril 40 mg daily
#HLD
-Continue atorvastatin 10 mg at bedtime
#Hx nasal MRSA January 2024
#Anxiety
-Continue Cymbalta
#Former smoker
DVT prophylaxis
SCDs plt 91
DNR per patient did compared to recent admission January 2024 was also listed as DNR
Anticipated Discharge: 24 - 48 hours
Subjective/Interval History
-
Date of Service: March 24, 2024
Objective Data
-
Labs:
Laboratory Results
03/24/24
07:06
WBC 2.8 L
Hgb 9.5 L
Hct 29.2 L
Plt Count 74 L
Sodium 142
Potassium 3.5
Chloride 108 H
Carbon Dioxide 28
BUN 8
Creatinine 0.5 L
Glucose 95
Calcium 10.8 H
Total Bilirubin 0.4
AST 26
ALT 16
Alkaline Phosphatase 142 H
Vital Signs:
Vital Signs
Temp Pulse Resp BP Pulse Ox
98.9 F 102 18 163/81 94
03/24/24 11:39 03/24/24 11:39 03/24/24 11:39 03/24/24 11:39 03/24/24 11:39
I&O
03/23/24 03/24/24 03/25/24
06:59 06:59 06:59
Intake Total 1320 / 1320 1400 / 1400
Output Total 400 / 400
Balance 920 / 920 1400 / 1400
Physical Exam
-
General: Well Developed and No Apparent Distress
HEENT: Normocephalic, Atraumatic and Moist Mucous Membranes
Respiratory: Clear to Auscultation
Cardiac: Regular Rhythm and S1/S2; Negative Murmur, Rub or Gallop
GI: Soft, Nontender, Nondistended and Normal Bowel Sounds; Negative Organomegaly
Rectal: Deferred by Provider
Musculoskeletal: No Clubbing, No Cyanosis and No Edema
Skin: Negative Rash
Neuro: Awake, Alert, Oriented and Nonfocal/Grossly Intact
--- NOTE | 2024-03-24 15:03 | W.DS.TRANS ---
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
-
Discharge Instructions:
Discharge Diagnosis/Procedures Impression:
Altered mental status secondary to toxic
metabolic encephalopathy.
Hypercalcemia secondary to multiple myeloma
Dysuria/urgency with concern for UTI.
Conditions prior to admission:
Refractory multiple myeloma since 2011
� Status post stem cell transplant 2015
Chronic pancytopenia
Chronic malignant pain requiring opiates.
Multiple compression fractures status post
kyphoplasty T12, L2, L3 03/17.
Essential hypertension
Dyslipidemia
Anxiety.
Former smoker
Diet Regular
Instructions:
Stand-Alone Forms:
Changes to Home Medications: No
Discharge Medications:
DC Medications w/original date entered in [employer]
atorvastatin 10 mg tablet 10 mg PO HS High Cholesterol 09/25/23
lisinopril 40 mg tablet 40 mg PO DAILY Blood Pressure 09/25/23
duloxetine 30 mg capsule,delayed release 30 mg PO DAILY Mental Health/Anxiety 02/17/24
folic acid 1 mg tablet 1 mg PO DAILY Supplement 02/17/24
naloxone 4 mg/actuation nasal spray 4 mg intranasal Q3M PRN opioid overdose 02/17/24
pyridoxine (vitamin B6) 100 mg tablet 100 mg PO DAILY Supplement 02/17/24
acetaminophen 500 mg tablet (Tylenol Extra Strength) 1,000 mg (2 x 500 mg) PO Q8H #90 tabs 02/28/24
cetirizine 10 mg tablet 5 mg (1/2 x 10 mg) PO DAILY #30 tabs 02/28/24
lidocaine 4 % topical patch 1 patch topical DAILY #30 ea 02/28/24
polyethylene glycol 3350 17 gram oral powder packet (HealthyLax) 17 g PO BID #30 ea 02/28/24
sennosides 8.6 mg tablet (Senna Laxative) 8.6 mg PO BID #60 tabs 02/28/24
bisacodyl 10 mg rectal suppository (Dulcolax (bisacodyl)) 10 mg ND Q8HPRN PRN if no bm aftr mom 03/21/24
magnesium hydroxide 400 mg/5 mL oral suspension (Milk of Magnesia) 2,400 mg PO [id number] PRN if no bm by 3rd day 03/21/24
polyvinyl alcohol-povidone (PF) 1.4 %-0.6 % eye drops in a dropperette (Refresh Classic (PF)) 1 drp BOTH EYES QID Eye Condition 03/21/24
morphine 30 mg tablet,extended release (MS Contin) 30 mg PO Q12H Pain #14 tabs 03/24/24
oxycodone 10 mg tablet 15 mg (1.5 x 10 mg) PO Q4HPRN PRN severe pain #20 tabs 03/24/24
Home Medication Changes
Pending Results: No
[2024-03-24] MEDS: ROXICODONE 15 MG PO (17:41)
== END 2024-03-24 18:20 | DRG 840 ==
LOC: 4 WEST ACU 23:48
PROVIDERS: Clinical Nurse Specialist Family Health; Emergency Medicine; ADMITTING PHYSICIAN Internal Medicine; ATTENDING PHYSICIAN Internal Medicine; EMERGENCY PHYSICIAN Emergency Medicine; FAMILY PHYSICIAN Internal Medicine; OTHER PHYSICIAN Internal Medicine Hematology & Oncology
DX: C90.00 Multiple myeloma not having achieved remission (principal); G92.8 Other toxic encephalopathy; F11.20 Opioid dependence, uncomplicated; Z94.84 Stem cells transplant status; R44.0 Auditory hallucinations; D80.1 Nonfamilial hypogammaglobulinemia; D61.818 Other pancytopenia; M54.50 Low back pain, unspecified; E78.00 Pure hypercholesterolemia, unspecified; I10 Essential (primary) hypertension; E83.52 Hypercalcemia; G89.3 Neoplasm related pain (acute) (chronic); D69.6 Thrombocytopenia, unspecified; D53.9 Nutritional anemia, unspecified; G62.0 Drug-induced polyneuropathy; R29.6 Repeated falls; F41.9 Anxiety disorder, unspecified; R30.0 Dysuria; R44.1 Visual hallucinations; W01.0XXA Fall on same level from slipping, tripping and stumbling without subsequent striking against object, initial encounter; Y93.9 Activity, unspecified; Y92.009 Unspecified place in unspecified non-institutional (private) residence as the place of occurrence of the external cause; Z66 Do not resuscitate; Z87.311 Personal history of (healed) other pathological fracture; Z88.5 Allergy status to narcotic agent; Z88.8 Allergy status to other drugs, medicaments and biological substances; Z91.018 Allergy to other foods; Z87.440 Personal history of urinary (tract) infections; Z87.891 Personal history of nicotine dependence; Z86.14 Personal history of Methicillin resistant Staphylococcus aureus infection; Z11.52 Encounter for screening for COVID-19
CPT/HCPCS: 70450; 71046; 71275; 72100; 80053; 81003; 81015; 82306; 82330; 82652; 82962; 83605; 83970; 84145; 84484; 85025; 85379; 87040; 87086; 87502; 87811; 93005; 96374; 97116; 97163; 97167; 97530; 97535; 99285; Q9967

== ENCOUNTER 2024-04-01 22:54 | Emergency (ER) | payer MEDICARE, SELFPAY ==
[2024-04-01 22:55] VITALS: BP 164/91; BMI 22.1
--- NOTE | 2024-04-01 23:36 | ED.GENMED ---
History of Present Illness
General
Chief Complaint: Abdominal Pain
Time Seen by Provider: 04/01/24 22:55
Travel History
Have you had any contact with someone who has COVID-19?: No
Do you have any symptoms of coronavirus? Fever > 100 degrees, chills, cough, shortness of breath, sore throat, loss of taste or smell, muscle aches, or headache?: No
History of Present Illness
History of Present Illness:
69-year-old female with history of chronic pain on opioids secondary to multiple myeloma presents to the emergency department for evaluation abdominal discomfort and constipation for the past week. She has been given milk of magnesia without
relief. Oxycodone and morphine due to cancer related pain. She reports she is still passing gas. No nausea or vomiting
Past History
Past History
ED Past Medical History: HTN, Hypercholesterolemia and Other (multiple myeloma 2012 stem cell txp 2016)
Social History
Tobacco: Former smoker
Alcohol: None
Drug: None
Review of Systems
Review of Systems
Allergies reviewed?: Yes
All Other Systems: ROS reviewed and negative except as documented in HPI and ROS
Phy Exam
Physical Exam
Physical Exam:
GEN: Well appearing, NAD, WDWN
HEENT: Oral mucosa moist, no scleral icterus
Cardiac: Regular rate
Lung: No respiratory distress, no tachypnea
Abdomen: Soft, nontender, no rigidity
Rectal: No stool in the rectal vault
MSK: No gross deformity or injuries
Skin: Good color, no pallor or jaundice, no rashes
Neuro: AO x3, moves all extremities freely
Psych: Calm, cooperative
Course
Orders/Labs/Results
Orders:
Orders
04/01/24 23:02
CR Obstruct Series W/pa Chest Urgent
Comment:
Reason For Exam: abd pain/constipation
04/01/24 23:35
Magnesium Citrate [Citroma] 300 ml PO ONCE ONE
Vital Signs
Initial and Last Documented VS:
Initial Vital Signs
Temp Pulse Resp BP Pulse Ox
98.2 F 100 20 164/91 97
04/01/24 22:55 04/01/24 22:55 04/01/24 22:55 04/01/24 22:55 04/01/24 22:55
Last Documented Vital Signs
Temp Pulse Resp BP Pulse Ox
98.2 F 100 20 164/91 97
04/01/24 22:55 04/01/24 22:55 04/01/24 22:55 04/01/24 22:55 04/01/24 22:55
MDM/Problems Addressed
MDM/Problems Addressed:
Likely opioid induced constipation. Patient given single dose of magnesium citrate indication for CT scan as she has a benign abdominal exam. Doubt enema would be of benefit given lack of stool in the rectal vault
*Critical Care Note
Total Time (30-74mins, 75-104mins- exclusive of procedures): Not Applicable
ED Attending Note
-
Portions of this chart may have been created with voice recognition software.� Occasional wrong word or��sound alike� substitutions may have occurred due to the inherent limitations of voice recognition software.
Discharge Plan
Departure
Patient Disposition: Home (Routine Discharge)
Date of Disposition: 04/01/24
Time of Disposition: 23:36
Patient with high blood pressure during this ER visit?: No
Discharge Problem:
Therapeutic opioid induced constipation
Prescriptions:
No Action
atorvastatin 10 mg Tablet
10 mg PO HS
lisinopril 40 mg Tablet
40 mg PO DAILY
folic acid 1 mg Tablet
1 mg PO DAILY
pyridoxine (vitamin B6) 100 mg Tablet
100 mg PO DAILY
duloxetine 30 mg Capsule,Delayed Release(Dr/Ec)
30 mg PO DAILY
naloxone 4 mg/actuation [place],Non-Aerosol
4 mg INTRANASAL Q3M PRN (Reason: opioid overdose)
lidocaine 4 % Adhesive Patch,Medicated
1 patch topical DAILY Qty: 30 0RF
Rx Instructions:
Apply to lower back. Remove patch every evening.
polyethylene glycol 3350 [HealthyLax] 17 gram Powder In Packet
17 g PO BID Qty: 30 0RF
sennosides [Senna Laxative] 8.6 mg Tablet
8.6 mg PO BID Qty: 60 0RF
acetaminophen [Tylenol Extra Strength] 500 mg Tablet
1,000 mg PO Q8H Qty: 90 0RF
cetirizine 10 mg Tablet
5 mg PO DAILY Qty: 30 0RF
magnesium hydroxide [Milk of Magnesia] 400 mg/5 mL Suspension
2,400 mg PO [id number] PRN (Reason: if no bm by 3rd day)
bisacodyl [Dulcolax (bisacodyl)] 10 mg Suppository
10 mg AL Q8HPRN PRN (Reason: if no bm aftr mom)
Refresh Classic (PF) 1.4-0.6 % dropperette
1 drp BOTH EYES QID
morphine [MS Contin] 30 mg Tablet Extended Release
30 mg PO Q12H Qty: 14 0RF
oxycodone 10 mg tablet
15 mg PO Q4HPRN PRN (Reason: severe pain) Qty: 20 0RF
Referrals:
Hyacinth Krueger DO [Family Provider] -
Interventions
Interventions:
*Risk Screen - Suicide Last Done: 04/01/24 22:55
*General Assessment Last Done: 04/01/24 22:55
*Neglect/Abuse Screening Last Done: 04/01/24 22:55
*ED COVID-19 Vaccine History Last Done: 04/01/24 22:55
Discharge Date and Time
Print Language: BURKIN[place]
[2024-04-02] MEDS: CITROMA 300 ML PO (01:41)
[2024-04-02 01:45] VITALS: BP 145/83
== END 2024-04-02 01:50 | disposition home or self-care (01) ==
LOC: EMR 22:54
PROVIDERS: EMERGENCY PHYSICIAN Student in an Organized Health Care Education/Training Program; FAMILY PHYSICIAN Student in an Organized Health Care Education/Training Program
DX: K59.00 Constipation, unspecified (principal); T40.2X5A Adverse effect of other opioids, initial encounter; I10 Essential (primary) hypertension; E78.00 Pure hypercholesterolemia, unspecified; Z87.891 Personal history of nicotine dependence; C90.00 Multiple myeloma not having achieved remission; G89.3 Neoplasm related pain (acute) (chronic)
CPT/HCPCS: 99284; 74022